=== PATIENT | male | born 1950 | race Caucasian/White ===

== ENCOUNTER 2019-01-04 15:20 | Inpatient (IN) | payer MEDICARE, BC ==
[2019-01-04] MEDS ORDERED: HEPARIN SODIUM,PORCINE 5,000 UNIT/ML 1 ML VIAL IV STA ×2 (15:26→15:27)
[2019-01-04] MEDS ORDERED: ASPIRIN 325 MG TAB PO STA (15:26)
[2019-01-04] MEDS ORDERED: MORPHINE SULFATE 2 MG/ML SYRINGE IVP STA (15:26)
[2019-01-04] MEDS ORDERED: ATORVASTATIN 40 MG TAB PO STA (15:26)
[2019-01-04] MEDS: ASPIRIN 81 MG PO STA ×2 (15:28→15:31)
[2019-01-04] MEDS ORDERED: ATORVASTATIN 80 MG TAB PO STA (15:29)
[2019-01-04] MEDS ORDERED: NALOXONE 0.4 MG/ML 1 ML VIAL IV PRN (15:31)
--- NOTE | 2019-01-04 15:37 | ED ---
General Adult HPI - General Stated complaint: Chest pain Time Seen by Provider: 01/04/19 15:21 Source: patient, RN notes reviewed, old records reviewed - History of Present Illness Initial comments: 68 -year-old male history of CAD previous stenting in 2001 presents for evaluation of chest pain lightheadedness and near syncope. Symptoms began 30 minutes prior to arrival. Patient describes substernal chest pain, diaphoresis and nausea. He has had previous NJ. 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 He is scheduled for an outpatient heart catheterization but has not had a heart catheterization since 2001. Patient has history of hypertension, hyperlipidemia. - Related Data Home Medications Medication Instructions Recorded Confirmed Aspirin [[place] Aspirin EC] 81 mg PO DAILY 01/04/19 01/04/19 Cholecalciferol (Vitamin D3) 2,000 unit PO DAILY 01/04/19 01/04/19 [Vitamin D3] Cyanocobalamin (Vitamin B-12) 1,000 mcg PO DAILY 01/04/19 01/04/19 [Vitamin B-12] Allergies Allergy/AdvReac Type Severity Reaction Status Date / Time wheat Allergy Severe Swelling Verified 01/04/19 15:27 Review of Systems ROS Statement: Those systems with pertinent positive or pertinent negative responses have been documented in the HPI. ROS Other: All systems not noted in ROS Statement are negative. General Exam General appearance: alert, in distress Head exam: Present: atraumatic, normocephalic Eye exam: Present: normal appearance, PERRL ENT exam: Present: normal exam Neck exam: Present: normal inspection. Absent: tenderness, meningismus Respiratory exam: Present: normal lung sounds bilaterally. Absent: respiratory distress, wheezes Cardiovascular Exam: Present: regular rate, normal rhythm GI/Abdominal exam: Present: soft. Absent: distended, tenderness Extremities exam: Present: normal inspection, normal capillary refill. Absent: pedal edema Neurological exam: Present: alert, oriented X3 Psychiatric exam: Present: normal affect, normal mood Skin exam: Present: diaphoretic, pallor EKG Findings - EKG Comments: EKG Findings:: EKG: Normal sinus rhythm ST segment elevation in II, III, and F aVF, T-wave inversion in aVL both 61, VT interval 148, QRS duration 98, QTC 428. ST segment elevation NJ. Medical Decision Making - Medical Decision Making 68-year-old male presenting with chest pain. EKG shows ST segment elevation in inferior leads. He is given aspirin, heparin, Lipitor the emergency department. label maker is activated, case discussed with Dr. Cruz. X-ray, laboratory studies all pending. Patient admitted with acute inferior NJ. Disposition Clinical Impression: STEMI (ST elevation myocardial infarction) Disposition: ADMITTED IP TO THIS [facility] Condition: Serious Is patient prescribed a controlled substance at d/c from ED?: No Referrals: None,Stated [Primary Care Provider] - 1-2 days Decision to Admit Reason: Admit from EC Decision Date: 01/04/19 Decision Time: 15:37
[2019-01-04] MEDS ORDERED: IV FLUID CONTINUATION 1,000 ML IV ONE ×2 (15:39)
[2019-01-04 15:41] LABS: Glucose,Whole Blood 120 mg/dL (75-99)
[2019-01-04 15:43] LABS: Basophils # (A) 0.1 k/uL (0-0.2); Basophils % (A) 1 %; Eosinophils # (A) 0.3 k/uL (0-0.7); Eosinophils % (A) 2 %; HGB 15.7 gm/dL (13.0-17.5); Lymphocytes # (A) 7.9 k/uL (1.0-4.8); Lymphocytes % (A) 52 %; MCH 30.7 pg (25.0-35.0); MCHC 32.7 g/dL (31.0-37.0); MCV 93.7 fL (80.0-100.0); Mean Platelet Volume 8.4; Monocytes # (A) 0.8 k/uL (0-1.0); Monocytes % (A) 5 %; Neutrophils # (A) 5.9 k/uL (1.3-7.7); Neutrophils % (A) 39 %; Platelet Count 259 k/uL (150-450); RBC 5.13 m/uL (4.30-5.90); WBC 15.3 k/uL (3.8-10.6)
[2019-01-04] MEDS ORDERED: VERAPAMIL 2.5 MG/ML 2 ML AMP ONE (15:43)
[2019-01-04] MEDS ORDERED: HEPARIN SODIUM 1,000 UN/ML (10ML VL) ONE (15:44)
[2019-01-04] MEDS ORDERED: LIDOCAINE 1% INJ 10MG/ML (20 ML MDV) ONE (15:44)
--- NOTE | 2019-01-04 15:47 | XR ---
EXAMINATION TYPE: XR chest 1V portable DATE OF EXAM: 01/04/2019 COMPARISON: NONE HISTORY: Myocardial infarction, chest pain TECHNIQUE: Single frontal view of the chest is obtained. FINDINGS: There is no focal air space opacity, pleural effusion, or pneumothorax seen. The cardiac silhouette size is within normal limits. There are overlying cardiac leads. Old left clavicular fract ure appears healed. The osseous structures are intact. IMPRESSION: No acute process.
[2019-01-04] MEDS ORDERED: MIDAZOLAM (PF) 2 MG/2 ML VIAL IV ONE (15:48)
[2019-01-04 15:52] LABS: Albumin 4.3 g/dL (3.5-5.0); Calcium 9.9 mg/dL (8.4-10.2); Total Bilirubin 0.5 mg/dL (0.2-1.3)
[2019-01-04] MEDS ORDERED: LIDOCAINE 1% INJ 10MG/ML (20 ML MDV) SQ ONE (16:00)
[2019-01-04 16:05] LABS: Prothrombin Time 10.5 sec (9.0-12.0)
[2019-01-04] MEDS ORDERED: BIVALIRUDIN BOLUS 250 MG/50 ML IV ONE (16:07)
[2019-01-04] MEDS ORDERED: CLOPIDOGREL 75 MG TAB ONE ×2 (16:07→16:09)
[2019-01-04] MEDS ORDERED: BIVALIRUDIN 250 MG in SODIUM CHLORIDE 0.9% 50 ML IV ONE (16:07)
[2019-01-04] MEDS ORDERED: CLOPIDOGREL 75 MG TAB PO ONE (16:07)
--- NOTE | 2019-01-04 16:09 | P.CRDCN ---
History of Present Illness Consult date: 01/04/19 Reason for Consult (text): Inferior STEMI Chief complaint: Chest pain History of present illness: This is a pleasant 68-year-old gentleman with history of anterior MA several years ago, at which time the patient underwent angioplasty and stenting of left anterior descending artery. History of hypertension, hyperlipidemia. He follows with a tax commissioner in the [facility]. He states recently he had an appointment with his tax commissioner, underwent stress testing and echocardiogram in his office. He had a follow-up appointment after his testing was performed, and was recommended by his tax commissioner to undergo cardiac catheterization Tuesday of next week. The patient was in the parking lot of 's office, waiting for his when he developed midsternal chest pressure and heaviness which she states that about 9 at that time. He thought he had some baby aspirin in the car, when he discovered that he did not, he drove himself to [place] and took a bottle of baby aspirin. Subsequently the patient was brought to the emergency room by his , EKG on arrival showed a normal sinus rhythm with ST elevation in the inferior leads. Patient's pain at the time of his arrival there was at about a 6-7. He was initiated on IV heparin, and the patient was given at 80 mg dose of Lipitor. His blood pressure on arrival 110/40 with a heart rate of 60, 97% on room air. Patient was advised to emergently undergo cardiac catheterization, the risks and the benefits were explained to the patient in detail and he was willing to proceed. Patient was taken directly to the cardiac catheterization lab. Medications and Allergies Home Medications Medication Instructions Recorded Confirmed Type Aspirin [[place] Aspirin EC] 81 mg PO DAILY 01/04/19 01/04/19 History Cholecalciferol (Vitamin D3) 2,000 unit PO DAILY 01/04/19 01/04/19 History [Vitamin D3] Cyanocobalamin (Vitamin B-12) 1,000 mcg PO DAILY 01/04/19 01/04/19 History [Vitamin B-12] Allergies Allergy/AdvReac Type Severity Reaction Status Date / Time wheat Allergy Severe Swelling Verified 01/04/19 15:27 Physical Exam Vitals: Vital Signs Pulse Resp BP Pulse Ox 01/04/19 15:31 63 19 111/42 97 Intake and Output 01/04/19 01/04/19 01/04/19 06:59 14:59 22:59 Other: Weight 87.09 kg PHYSICAL EXAMINATION: GENERAL: 68-year-old gentleman complaining of midsternal chest pressure and heaviness, rating at about a 6 HEENT: Head is atraumatic, normocephalic. Pupils equal, round. Sclera anicteric. Conjunctiva are clear. Mucous membranes of the mouth are moist. Neck is supple. There is no elevated jugular venous pressure. No carotid bruit is heard. HEART EXAMINATION: Heart S1, S2 normal. No murmur or gallop heard. CHEST EXAMINATION: Lungs are clear to auscultation and precussion. No chest wall tenderness is noted on palpation or with deep breathing. ABDOMEN: Soft, nontender. Bowel sounds are heard. No organomegaly noted. EXTREMITIES: 2+ peripheral pulses with no evidence of peripheral edema and no calf tenderness noted. NEUROLOGIC patient is awake, alert and oriented 3 . Results 01/04/19 15:27 01/04/19 15:27 Cardiac Enzymes 01/04/19 Range/Units 15:27 AST 24 (17-59) U/L CBC 01/04/19 Range/Units 15:27 WBC 15.3 H (3.8-10.6) k/uL RBC 5.13 (4.30-5.90) m/uL Hgb 15.7 (13.0-17.5) gm/dL Hct 48.0 (39.0-53.0) % Plt Count 259 (150-450) k/uL Comprehensive Metabolic Panel 01/04/19 Range/Units 15:27 Sodium 142 (137-145) mmol/L Potassium 4.0 (3.5-5.1) mmol/L Chloride 108 H (98-107) mmol/L Carbon Dioxide 23 (22-30) mmol/L BUN 22 H (9-20) mg/dL Creatinine 1.16 (0.66-1.25) mg/dL Glucose 124 H (74-99) mg/dL Calcium 9.9 (8.4-10.2) mg/dL AST 24 (17-59) U/L ALT 24 (21-72) U/L Alkaline Phosphatase 57 (38-126) U/L Total Protein 7.0 (6.3-8.2) g/dL Albumin 4.3 (3.5-5.0) g/dL Current Medications Generic Name Dose Route Start Last Admin Trade Name Freq PRN Reason Stop Dose Admin Naloxone HCl 0.2 mg 01/04/19 15:31 Narcan IV Q2M PRN Opioid Reversal Intake and Output 01/04/19 01/04/19 01/04/19 06:59 14:59 22:59 Other: Weight 87.09 kg Patient Weight 01/05/19 06:59 Weight 87.09 kg 01/04/19 15:27 01/04/19 15:27 EKG Interpretations (text) EKG on arrival showed a normal sinus rhythm with inferior ST elevation. Assessment and Plan Plan: Assessment and plan #[address] elevation myocardial infarction #2 history of prior myocardial infarction with LAD stenting several years ago #3 hypertension #4 hyperlipidemia Plan Patient had taken aspirin, he was initiated on IV heparin, given 80 mg of L ipitor, chest x-ray was performed and patient was advised to emergently undergo cardiac catheterization. The risks and the benefits were explained to the patient in detail and he was willing to proceed. He was taken directly to the cardiac catheterization lab where Dr. Pimentel was going to perform a cardiac catheterization. Further recommendations will be based on those findings and the patient's clinical course. DNP note has been reviewed, I agree with a documented findings and plan of care. Patient was seen and examined.
[2019-01-04] MEDS ORDERED: NITROGLYCERIN 1000MCG/10ML SYRINGE INTRACORON ONE ×2 (16:10→16:21)
[2019-01-04] MEDS ORDERED: fentaNYL (PF) 50 MCG/ML 2 ML AMP ONE (16:11)
[2019-01-04] MEDS ORDERED: IOPAMIDOL-370 125ML BTL INJ ONE (16:23)
[2019-01-04] MEDS ORDERED: IOPAMIDOL-370 100ML BTL INJ ONE (16:28)
[2019-01-04 16:35] LABS: Creatine Kinase MB 1.5 ng/mL (0.0-2.4)
[2019-01-04 16:39] LABS: Troponin I 0.013 ng/mL (0.000-0.034)
[2019-01-04] MEDS ORDERED: ATROPINE SULFATE 0.1 MG/ML 10ML SYRINGE IV PRN (16:40)
[2019-01-04] MEDS ORDERED: MAG HYDROX/AL HYDROX/SIMETH 30 ML CUP PO PRN (16:41)
[2019-01-04] MEDS ORDERED: NITROGLYCERIN SL TABS 0.4 MG TAB SUBLINGUAL PRN (16:42)
[2019-01-04] MEDS ORDERED: ZOLPIDEM 5 MG TAB PO PRN (16:43)
[2019-01-04] MEDS ORDERED: SODIUM CHLORIDE 0.9% 1,000 ML IV SCH (16:45)
[2019-01-04 16:52] LABS: Glucose,Whole Blood 125 mg/dL (75-99)
[2019-01-04] MEDS ORDERED: TEMAZEPAM 15 MG CAP PO PRN (17:26)
[2019-01-04] MEDS ORDERED: ALPRAZolam 0.25 MG TAB PO PRN (17:26)
[2019-01-04] MEDS ORDERED: HYDROmorphone 0.5 MG/0.5 ML SYRINGE IVP PRN (17:26)
[2019-01-04] MEDS ORDERED: ACETAMINOPHEN TAB 500 MG TAB PO PRN (17:26)
[2019-01-04 17:43] VITALS: BMI 28.1
[2019-01-04] MEDS: CLOPIDOGREL 75 MG TAB PO SCH (18:13)
[2019-01-04] MEDS ORDERED: ATORVASTATIN 80 MG TAB PO SCH (21:00)
--- NOTE | 2019-01-04 22:04 | HP ---
HISTORY AND PHYSICAL DATE OF SERVICE: 01/04/2019 CHIEF COMPLAINTS: Chest pain. HISTORY OF PRESENT ILLNESS: This 68-year-old gentleman with a past medical history of anterior wall myocardial infarction several years ago and angioplasty of the LAD, history of hypertension, hyperlipidemia, being followed by Dr. Sampson in the outpatient setting. The patient apparently was waiting near the doctor's office in the parking lot. Patient developed chest pain. The patient apparently took some aspirins, because of lack of relief, the patient came to [facility]. The patient underwent cardiac assistance and stenting. The patient admitted for further evaluation and treatment. The details are not available at this time. The patient is being admitted to ICU at this time. There is no history of fever, rigors. No history of headache, loss consciousness, seizures at this time. PAST MEDICAL HISTORY: History of hypertension, hyperlipidemia, history of myocardial infarction. MEDICATIONS: Prior to admission include vitamin B12, vitamin D3, and aspirin 81 daily. ALLERGIES: WHEAT. FAMILY HISTORY: No history of heart disease or strokes in the family. SOCIAL HISTORY: No history of smoking. No history of alcohol intake. REVIEW OF SYSTEMS: ENT: No diminished hearing. No diminished vision. CARDIOVASCULAR: As mentioned earlier. RESPIRATORY: As mentioned earlier. GI: No nausea or vomiting. : No dysuria. NERVOUS SYSTEM: No numbness or weakness. ALLERGY/IMMUNOLOGY: No asthma or hayfever. MUSCULOSKELETAL: As mentioned earlier. HEMATOLOGY/ONCOLOGY: No history of anemia. ENDOCRINE: No history of diabetes or hypothyroidism. CONSTITUTIONAL: As mentioned earlier. Dermatology: Negative. Rheumatology: Negative. Psychiatry: As mentioned earlier. PHYSICAL EXAMINATION: GENERAL: Alert and oriented times three. VITAL SIGNS: Pulse 63, blood pressure 114/42, respiration 18, temp is normal. Pulse ox 97% on room air. HEENT conjunctivae normal. Oral mucosa moist. NECK is no jugular venous distention. No carotid bruit. No lymph node enlargement. CARDIOVASCULAR SYSTEMS: S1, S2 muffled. RESPIRATIONS: Breath sounds diminished in the bases. No rhonchi. No crackles. ABDOMEN: Soft, nontender. No mass palpable. LEGS: No edema. No swelling. NERVOUS SYSTEM: Higher functions as mentioned earlier. Moves all four extremities. No focal deficits. LYMPHATICS: No lymph nodes palpable in the neck, axillae or groin. SKIN: No ulcer, rash or bleeding. JOINTS: No active deforming arthropathy. LABS: WBC 15.3, hemoglobin 16.2, sodium 140, potassium 4. ASSESSMENT: 1. Acute ST segment elevation inferior wall myocardial infarction as well as cardiac catheterization and stenting. 2. Increased WBC possibly reactive. 3. Increased random blood sugar. 4. Hypertension. 5. Hyperlipidemia. 6. History of coronary artery disease myocardial infarction. RECOMMENDATIONS AND DISCUSSION: In this 68-year-old gentleman who presented with multiple medical issues, we will monitor the patient closely, continue the current medications, symptomatic treatment, dual antiplatelet treatment, Lipitor. Otherwise, we will monitor the patient closely and with Cardiology. Prognosis guarded. Copy of dictation forwarded to Dr. Sampson who is the primary physician. Repeat labs also will be ordered. PEREZ / LATONIAN: [id number] / MTDD
[2019-01-05 05:38] LABS: Basophils # (A) 0.1 k/uL (0-0.2); Basophils % (A) 0 %; Eosinophils # (A) 0.1 k/uL (0-0.7); Eosinophils % (A) 1 %; HCT 44.8 % (39.0-53.0); HGB 14.5 gm/dL (13.0-17.5); Lymphocytes # (A) 3.1 k/uL (1.0-4.8); Lymphocytes % (A) 22 %; MCH 30.4 pg (25.0-35.0); MCHC 32.3 g/dL (31.0-37.0); MCV 94.2 fL (80.0-100.0); Mean Platelet Volume 7.8; Monocytes % (A) 7 %; Neutrophils # (A) 9.6 k/uL (1.3-7.7); Neutrophils % (A) 69 %; Platelet Count 203 k/uL (150-450); RBC 4.76 m/uL (4.30-5.90); RDW 13.2 % (11.5-15.5)
[2019-01-05 05:51] LABS: Calcium 9.3 mg/dL (8.4-10.2); Potassium 4.6 mmol/L (3.5-5.1)
--- NOTE | 2019-01-05 07:51 | LTR ---
DATE OF SERVICE: 01/04/2019 RE: Irvin Maksim Dear Dr. Sampson; Mr. Maksim Bryan presented to [facility] with chest discomfort and was diagnosed with acute anterior inferior ST-elevation myocardial infarction. He was found to have subtotally occluded right coronary artery which was opened and stented with good angiographic results and without any complication. Thank you for allowing me to participate in his care and please do not hesitate to call if you have any question or concern. Sincerely, MD PEREZ Rubio / LATONIAN: [id number] /
--- NOTE | 2019-01-05 07:51 | CC ---
CARDIAC CATHETERIZATION REPORT DATE OF SERVICE: 01/04/2019 PERFORMING PHYSICIAN: Bart Cruz MD, Career Counselor. PROCEDURE PERFORMED: 1. Selective right and left coronary angiogram. 2. Left heart catheterization. 3. Successful stenting of the mid right coronary artery using 3.5 x 23 mm Xience drug- eluting stent with an excellent angiographic results and reduction of stenosis from 100% to 0%. 4. Successful stenting of the distal right coronary artery using 3.0 x 12 mm Xience drug-eluting stent with an excellent angiographic results and reduction of stenosis from 70% to 0%. INDICATION: This is a pleasant 68-year-old gentleman who sees a technology risk intern out of the town, , with known history of coronary artery disease and prior stenting of the left anterior descending artery, who presented to the emergency room with chest discomfort, and was diagnosed with acute inferior ST-elevation myocardial infarction. Because of that, an emergent heart catheterization was advised. APPROACH: Right common femoral artery. COMPLICATION: None. LEVEL OF SEDATION: Moderate with sedation length of 38 minutes. PROCEDURE DESCRIPTION: After obtaining an informed consent, the patient was brought to the cardiac labor and employment paralegal. The right common femoral artery was cannulated using micropuncture technique and a micropuncture wire passed easily, then I placed a 6-Colombian sheath in the right common femoral artery. After that, I did selective right and left coronary angiogram using JR4 and JL4 catheters. Left heart catheterization was performed using the JR4 catheter which flipped into the LV, then I did pullback across the aortic valve. After that, I did intervene on the right coronary artery. Please see a separate paragraph for that. SELECTIVE CORONARY ANGIOGRAM: 1. The right coronary artery is a large caliber vessel. It is a dominant vessel. The RCA in the midportion is subtotally occluded. 2. The left main is angiographically normal, it bifurcates into the circumflex and left anterior descending artery. 3. The left circumflex is a large caliber vessel. It is a codominant vessel. The left circumflex appeared to be angiographically normal, in the midportion, gives rise into a large OM branch and distally bifurcates into PDA and PLV branches, both appeared to be angiographically normal. 4. The LAD, the proximal LAD is stented with mild in-stent restenosis. The LAD in the proximal portion gives rise into the first and second diagonal branches, both appear to be have mild disease only. The LAD in the midportion and distal portion appeared to be diffusely diseased up to about 50%. HEMODYNAMICS: The left ventricular end-diastolic pressure was about 12 mmHg without significant gradient across the aortic valve. PCI OF THE RCA: Anticoagulation was initiated using Angiomax but subsequently I took a JR4 guide and the RCA was engaged. A whisper wire was used to cross the acute total occlusion in the midportion. After that, I did balloon angioplasty using 2.5 x 12 mm balloon before I deployed a 3.5 x 23 mm Xience drug-eluting stent where the stent was positioned under fluoroscopy guidance and deployed under 14 atmospheres for 20 seconds. The following angiogram showed that the stented segment looks good, but there is a lesion in the distal RCA appears to be in the range of 70%. I decided to cover that with a stent, so I placed 3.0 x 12 mm, another Xience drug-eluting stent where the stent again was positioned under fluoroscopy guidance and deployed under its nominal pressure. The following angiogram showed good angiographic results and the procedure was completed without any complication. CONCLUSION: 1. Acute total occlusion of the mid right coronary artery. 2. Successful stenting of the mid right coronary artery using 3.5 x 23 mm Xience drug- eluting stent as well as the distal right coronary artery using 3.0 x 12 mm Xience drug-eluting stent with an excellent angiographic results. 3. Patent stent in the proximal left anterior descending artery. The LAD in the mid and distal portion is diffusely diseased. POSTPROCEDURE MANAGEMENT: 1. Maximize medical treatment. 2. Dual anti-platelet therapy. 3. Risk factors modifications. 4. Follow up with the patient. MMODL / IJN: [id number] /
--- NOTE | 2019-01-05 08:08 | P.PN ---
Subjective Progress Note Date: 01/05/19 Principal diagnosis: Inferior ST elevation MD This is a pleasant 68-year-old gentleman with a past medical history significant for coronary artery disease and prior stenting of the LAD who presented to the hospital with chest discomfort and was diagnosed with acute inferior ST patient myocardial infarction. He underwent an emergent heart catheterization and was found to have subtotally occluded mid RCA which was stented and severe disease involving the distal RCA which was stented as well. On follow-up with him today, 01/15/2019, he seems to be doing good from a cardiac vascular standpoint overview. He denies any chest pain or chest discomfort. He has been maintaining normal sinus mechanism. The right groin which was the access site is soft and nontender and without any bruises. He continues to be on dual antiplatelet therapy along with a statin as well as meto prolol. Objective - Vital Signs Vital signs: Vital Signs Temp 98.0 F 01/05/19 04:00 Pulse 83 01/05/19 07:00 Resp 17 01/05/19 07:00 BP 132/81 01/05/19 07:00 Pulse Ox 96 01/05/19 07:00 Intake & Output 01/04/19 01/05/19 01/05/19 18:59 06:59 18:59 Intake Total 560 495 Output Total 300 770 200 Balance 260 -275 -200 Weight 87.09 kg Intake: IV 560 375 Sodium Chloride 0.9% 1, 225 375 000 ml @ 75 mls/hr IV . [id number] TAWANNA Rx#:[id number] Oral 120 Output: Urine 300 770 200 Other: Voiding Method Urinal Urinal # Voids 0 - Constitutional General appearance: Present: no acute distress - Respiratory Respiratory: bilateral: CTA - Cardiovascular Rhythm: regular Heart sounds: normal: S1, S2 - Labs CBC & Chem 7: 01/05/19 04:47 01/05/19 04:47 Labs: Abnormal Lab Results - Last 24 Hours (Table) 01/04/19 01/04/19 01/04/19 Range/Units 15:27 15:27 15:27 WBC 15.3 H (3.8-10.6) k/uL Neutrophils # (1.3-7.7) k/uL Lymphocytes # 7.9 H (1.0-4.8) k/uL Chloride 108 H (98-107) mmol/L BUN 22 H (9-20) mg/dL Glucose 124 H (74-99) mg/dL POC Glucose (mg/dL) 120 H (75-99) mg/dL 01/04/19 01/05/19 Range/Units 16:50 04:47 WBC 14.0 H (3.8-10.6) k/uL Neutrophils # 9.6 H (1.3-7.7) k/uL Lymphocytes # (1.0-4.8) k/uL Chloride (98-107) mmol/L BUN (9-20) mg/dL Glucose (74-99) mg/dL POC Glucose (mg/dL) 125 H (75-99) mg/dL Assessment and Plan Assessment: Assessment #[address] patient myocardial infarction #2 status post PCI of the mid and distal RCA #3 hypertension #4 dyslipidemia Plan #1 continue the current medical regimen including dual antiplatelet therapy #2 follow-up on the echocardiogram to assess EF #3 the patient can be transferred to [facility]
[2019-01-05] MEDS: PANTOPRAZOLE 40 MG TABLET PO SCH (08:26)
[2019-01-05] MEDS: PRAVASTATIN SODIUM 20 MG TAB PO SCH (08:26)
[2019-01-05] MEDS: ASPIRIN 325 MG TAB PO SCH (08:26)
[2019-01-05] MEDS: CLOPIDOGREL 75 MG TAB PO SCH (08:26)
--- NOTE | 2019-01-05 11:06 | ECHOF ---
Referral Reason:stemi MEASUREMENTS -------- HEIGHT: 177.8 cm WEIGHT: 87.1 kg BP: 123/8 RVIDd: 3.1 cm (< 3.3) IVSd: 1.5 cm (0.6 - 1.1) LVIDd: 5.1 cm (3.9 - 5.3) LVPWd: 1.5 cm (0.6 - 1.1) IVSs: 2.2 cm LVIDs: 3.4 cm LVPWs: 1.8 cm LA Diam: 3.4 cm (2.7 - 3.8) LAESV Index (A-L): 21.86 ml/m Ao Diam: 3.6 cm (2.0 - 3.7) AV Cusp: 2.8 cm (1.5 - 2.6) MV EXCURSION: 13.189 mm (> 18.000) MV EF SLOPE: 131 mm/s (70 - 150) EPSS: 0.8 cm MV E Maximilian: 0.60 m/s MV DecT: 227 ms MV A Maximilian: 1.04 m/s MV E/A Ratio: 0.58 FINDINGS -------- Sinus rhythm. This was a technically adequate study. The left ventricular size is normal. There is moderate concentric left ventricular hypertrophy. O verall left ventricular systolic function is moderately impaired with, an EF between 35 - 40 %. Mid anteroseptal LV wall motion is akinetic. Apical anterior LV wall motion is akinetic. Apical la teral LV wall motion is hypokinetic. Apical inferior LV wall motion is akinetic. Apical septum LV wall motion is akinetic. The right ventricle is normal in size. Normal LA size by volume 22+/-6 ml/m2. The right atrium is normal in size. Lipomatous hypertrophy of atrial septum. There is mild aortic valve sclerosis. The mitral valve leaflets are mildly thickened. The tricuspid valve appears structurally normal. Trace/mild (physiologic) pulmonic regurgitation. Thrombus in LV apex by intraventricular septum The aortic root size is normal. Normal inferior vena cava with normal inspiratory collapse consistent with estimated right atrial pre ssure of 5 mmHg. There is no pericardial effusion. CONCLUSIONS -------- 1. Sinus rhythm. 2. This was a technically adequate study. 3. The left ventricular size is normal. 4. There is moderate concentric left ventricular hypertrophy. 5. Overall left ventricular systolic function is moderately impaired with, an EF between 35 - 40 %. 6. Apical anterior LV wall motion is akinetic. 7. Apical lateral LV wall motion is hypokinetic. 8. Apical inferior LV wall motion is akinetic. 9. Apical septum LV wall motion is akinetic. 10. The right ventricle is normal in size. 11. Normal LA size by volume 22+/-6 ml/m2. 12. The right atrium is normal in size. 13. Lipomatous hypertrophy of atrial septum. 14. There is mild aortic valve sclerosis. 15. The mitral valve leaflets are mildly thickened. 16. The tricuspid valve appears structurally normal. 17. Trace/mild (physiologic) pulmonic regurgitation. 18. Thrombus in LV apex by intraventricular septum 19. The aortic root size is normal. 20. Normal inferior vena cava with normal inspiratory collapse consistent with estimated right atrial pressure of 5 mmHg. 21. There is no pericardial effusion. DIRECTOR GENERAL: Nancy Mejia RDCS
--- NOTE | 2019-01-05 16:54 | P.PN ---
Subjective Progress Note Date: 01/05/19 Principal diagnosis: Acute ST elevation [place]; status post cardiac catheterization with stent to mid RCA 68-year-old gentleman with a past medical history significant for coronary art norma disease and prior stenting of the LAD who presented to the hospital with chest discomfort and was diagnosed with acute inferior ST patient myocardial infarction. He underwent an emergent heart catheterization and was found to have subtotally occluded mid RCA which was stented and severe disease involving the distal RCA which was stented as well. 01/05/2019 On follow-up, patient seems to be doing good; He denies any chest pain or chest discomfort. He has been maintaining normal sinus mechanism. The right groin which was the access site is soft and nontender and without any bruises. He continues to be on dual antiplatelet therapy along with a statin as well as metoprolol. Cardiothoracic surgery recommending possible transfer to selective care unit Objective - Vital Signs Vital signs: Vital Signs Temp 98.1 F 01/05/19 08:00 Pulse 85 01/05/19 08:00 Resp 20 01/05/19 08:00 BP 134/84 01/05/19 08:00 Pulse Ox 95 01/05/19 08:00 Intake & Output 01/04/19 01/05/19 01/05/19 18:59 06:59 18:59 Intake Total 560 495 Output Total 300 770 200 Balance 260 -275 -200 Weight 87.09 kg Intake: IV 560 375 Sodium Chloride 0.9% 1, 225 375 000 ml @ 75 mls/hr IV . [id number] TAWANNA Rx#:[id number] Oral 120 Output: Urine 300 770 200 Other: Voiding Method Urinal Urinal Toilet Urinal # Voids 0 # Bowel Movements 1 - Exam - Constitutional General appearance: Present: average body habitus, cooperative, no acute distress - EENT Eyes: Present: anicteric sclerae, EOMI, PERRLA, normal appearance ENT: Present: hearing grossly normal, normal oropharynx Ears: bilateral: normal - Neck Neck: Present: normal ROM. Absent: lymphadenopathy, rigidity, thyromegaly Carotids: negative: bruit present Thyroid: bilateral: normal size, negative: enlarged, nodule - Respiratory Respiratory: bilateral: CTA, negative: rales, rhonchi, wheezing - Cardiovascular Rhythm: regular Heart sounds: normal: S1, S2 Abnormal Heart Sounds: Absent: systolic murmur, diastolic murmur - Gastrointestinal General gastrointestinal: Present: normal bowel sounds, soft. Absent: distended, organomegaly, tenderness - Genitourinary Genitourinary Comment(s): deferred - Integumentary Integumentary: Present: normal turgor. Absent: jaundiced, rash, ulcer - Neurologic Neurologic: Present: CNII-XII intact. Absent: focal deficits - Musculoskeletal Musculoskeletal: Present: gait normal, strength equal bilaterally - Psychiatric Psychiatric: Present: A&O x's 3, appropriate affect, intact judgment & insight - Labs CBC & Chem 7: 01/05/19 04:47 01/05/19 04:47 Labs: Abnormal Lab Results - Last 24 Hours (Table) 01/04/19 01/04/19 01/04/19 Range/Units 15:27 15:27 15:27 WBC 15.3 H (3.8-10.6) k/uL Neutrophils # (1.3-7.7) k/uL Lymphocytes # 7.9 H (1.0-4.8) k/uL Chloride 108 H (98-107) mmol/L BUN 22 H (9-20) mg/dL Glucose 124 H (74-99) mg/dL POC Glucose (mg/dL) 120 H (75-99) mg/dL 01/04/19 01/05/19 Range/Units 16:50 04:47 WBC 14.0 H (3.8-10.6) k/uL Neutrophils # 9.6 H (1.3-7.7) k/uL Lymphocytes # (1.0-4.8) k/uL Chloride (98-107) mmol/L BUN (9-20) mg/dL Glucose (74-99) mg/dL POC Glucose (mg/dL) 125 H (75-99) mg/dL Assessment and Plan Assessment: 1. Acute ST elevation [place] - Patient is status post cardiac catheterization with stent to mid RCA - Patient remains on antiplatelet therapy with aspirin and Plavix 2. Hypertension; stable without any antihypertensive medications 3. Hyperlipidemia; remains on pravastatin 20 mg daily 4. DVT prophylaxis; SCDs CODE STATUS; full code Time with Patient: Greater than 30
[2019-01-06 05:17] LABS: Basophils # (A) 0.1 k/uL (0-0.2); Basophils % (A) 1 %; Eosinophils # (A) 0.3 k/uL (0-0.7); Eosinophils % (A) 3 %; HCT 46.5 % (39.0-53.0); HGB 14.9 gm/dL (13.0-17.5); Lymphocytes # (A) 3.9 k/uL (1.0-4.8); Lymphocytes % (A) 33 %; MCHC 32.1 g/dL (31.0-37.0); MCV 93.5 fL (80.0-100.0); Mean Platelet Volume 8.4; Monocytes # (A) 0.8 k/uL (0-1.0); Monocytes % (A) 7 %; Neutrophils # (A) 6.5 k/uL (1.3-7.7); Neutrophils % (A) 55 %; Platelet Count 227 k/uL (150-450); RBC 4.98 m/uL (4.30-5.90); WBC 11.8 k/uL (3.8-10.6)
[2019-01-06 05:31] LABS: Calcium 9.2 mg/dL (8.4-10.2); Potassium 4.5 mmol/L (3.5-5.1)
--- NOTE | 2019-01-06 07:09 | P.PN ---
Subjective Progress Note Date: 01/06/19 Principal diagnosis: Inferior ST elevation [place] This is a pleasant 68-year-old gentleman with a past medical history significant for coronary artery disease and prior stenting of the LAD who presented to the hospital with chest discomfort and was diagnosed with acute inferior ST patient myocardial infarction. He underwent an emergent heart catheterization and was found to have subtotally occluded mid RCA which was stented and severe disease involving the distal RCA which was stented as well. On follow-up with him today, 01/06/2019, he seems to be doing good from a cardiac vascular standpoint overview. He denies any chest pain or chest discomfort. He has been maintaining normal sinus mechanism. The right groin which was the access site is soft and nontender and without any bruises. He continues to be on dual antiplatelet therapy along with a statin as well as metoprolol. The echocardiogram showed severe cardiomyopathy was EF around 35%. Objective - Vital Signs Vital signs: Vital Signs Temp 98.3 F 01/06/19 00:00 Pulse 84 01/06/19 00:00 Resp 12 01/06/19 00:00 BP 119/77 01/06/19 00:00 Pulse Ox 96 01/06/19 00:00 Intake & Output 01/05/19 01/06/19 01/06/19 18:59 06:59 18:59 Intake Total 240 480 Output Total 300 Balance -60 480 Intake: Oral 240 480 Output: Urine 300 Other: Voiding Method Toilet Toilet Urinal Urinal # Voids 1 # Bowel Movements 1 - Constitutional General appearance: Present: no acute distress - Respiratory Respiratory: bilateral: CTA - Cardiovascular Rhythm: regular Heart sounds: normal: S1, S2 - Labs CBC & Chem 7: 01/06/19 04:41 01/06/19 04:41 Labs: Abnormal Lab Results - Last 24 Hours (Table) 01/06/19 Range/Units 04:41 WBC 11.8 H (3.8-10.6) k/uL Assessment and Plan Assessment: Assessment #[address] patient myocardial infarction #2 status post PCI of the mid and distal RCA #3 hypertension #4 dyslipidemia Plan #1 continue the current medical regimen including dual antiplatelet therapy #2 start metoprolol, lisinopril, and Aldactone, with small doses #4 monitor the patient for additional 24 hours and possible discharge tomorrow #5 follow-up with the patient
[2019-01-06] MEDS: SPIRONOLACTONE 25 MG TAB PO SCH (09:41)
[2019-01-06] MEDS: PANTOPRAZOLE 40 MG TABLET PO SCH (09:41)
[2019-01-06] MEDS: METOPROLOL TARTRATE 12.5 MG TAB PO SCH ×2 (09:41→21:12)
[2019-01-06] MEDS: ASPIRIN 325 MG TAB PO SCH (09:41)
[2019-01-06] MEDS: CLOPIDOGREL 75 MG TAB PO SCH (09:41)
[2019-01-06] MEDS: PRAVASTATIN SODIUM 20 MG TAB PO SCH (09:41)
[2019-01-06] MEDS: LISINOPRIL 2.5 MG TAB PO SCH (09:41)
--- NOTE | 2019-01-06 16:13 | P.PN ---
Subjective Progress Note Date: 01/06/19 Principal diagnosis: Acute ST elevation [place]; status post cardiac catheterization with stent to mid RCA 68-year-old gentleman with a past medical history significant for coronary art norma disease and prior stenting of the LAD who presented to the hospital with chest discomfort and was diagnosed with acute inferior ST patient myocardial infarction. He underwent an emergent heart catheterization and was found to have subtotally occluded mid RCA which was stented and severe disease involving the distal RCA which was stented as well. 01/05/2019 On follow-up, patient seems to be doing good; He denies any chest pain or chest discomfort. He has been maintaining normal sinus mechanism. The right groin which was the access site is soft and nontender and without any bruises. He continues to be on dual antiplatelet therapy along with a statin as well as metoprolol. Cardiothoracic surgery recommending possible transfer to selective care unit 01/06/2019, he seems to be doing good from a cardiac vascular standpoint overview. He denies any chest pain or chest discomfort. He has been maintaining normal sinus mechanism. The right groin which was the access site is soft and nontender and without any bruises. He continues to be on dual antiplatelet therapy along with a statin as well as metoprolol. The echocardiogram showed severe cardiomyopathy was EF around 35%. Objective - Vital Signs Vital signs: Vital Signs Temp 98.1 F 01/06/19 04:01 Pulse 69 01/06/19 06:00 Resp 12 01/06/19 06:00 BP 108/78 01/06/19 04:01 Pulse Ox 95 01/06/19 04:01 Intake & Output 01/05/19 01/06/19 01/06/19 18:59 06:59 18:59 Intake Total 240 480 Output Total 300 Balance -60 480 Intake: Oral 240 480 Output: Urine 300 Other: Voiding Method Toilet Toilet Urinal Urinal # Voids 1 # Bowel Movements 1 - Exam - Constitutional General appearance: Present: average body habitus, cooperative, no acute distress - EENT Eyes: Present: anicteric sclerae, EOMI, PERRLA, normal appearance ENT: Present: hearing grossly normal, normal oropharynx Ears: bilateral: normal - Neck Neck: Present: normal ROM. Absent: lymphadenopathy, rigidity, thyromegaly Carotids: negative: bruit present Thyroid: bilateral: normal size, negative: enlarged, nodule - Respiratory Respiratory: bilateral: CTA, negative: rales, rhonchi, wheezing - Cardiovascular Rhythm: regular Heart sounds: normal: S1, S2 Abnormal Heart Sounds: Absent: systolic murmur, diastolic murmur - Gastrointestinal General gastrointestinal: Present: normal bowel sounds, soft. Absent: distended, organomegaly, tenderness - Genitourinary Genitourinary Comment(s): deferred - Integumentary Integumentary: Present: normal turgor. Absent: jaundiced, rash, ulcer - Neurologic Neurologic: Present: CNII-XII intact. Absent: focal deficits - Musculoskeletal Musculoskeletal: Present: gait normal, strength equal bilaterally - Psychiatric Psychiatric: Present: A&O x's 3, appropriate affect, intact judgment & insight - Labs CBC & Chem 7: 01/06/19 04:41 01/06/19 04:41 Labs: Abnormal Lab Results - Last 24 Hours (Table) 01/06/19 Range/Units 04:41 WBC 11.8 H (3.8-10.6) k/uL Assessment and Plan Assessment: 1. Acute ST elevation [place] - Patient is status post cardiac catheterization with stent to mid RCA - Patient remains on antiplatelet therapy with aspirin and Plavix 2. Hypertension; stable without any antihypertensive medications 3. Hyperlipidemia; remains on pravastatin 20 mg daily 4. DVT prophylaxis; SCDs CODE STATUS; full code Time with Patient: Greater than 30
[2019-01-07] MEDS: PANTOPRAZOLE 40 MG TABLET PO SCH (05:55)
[2019-01-07 06:40] LABS: Basophils # (A) 0.1 k/uL (0-0.2); Basophils % (A) 1 %; Eosinophils # (A) 0.5 k/uL (0-0.7); Eosinophils % (A) 4 %; HCT 45.4 % (39.0-53.0); HGB 14.8 gm/dL (13.0-17.5); Lymphocytes # (A) 3.7 k/uL (1.0-4.8); Lymphocytes % (A) 33 %; MCH 30.4 pg (25.0-35.0); MCHC 32.7 g/dL (31.0-37.0); MCV 92.9 fL (80.0-100.0); Mean Platelet Volume 8.4; Monocytes # (A) 0.9 k/uL (0-1.0); Monocytes % (A) 8 %; Neutrophils # (A) 5.8 k/uL (1.3-7.7); Neutrophils % (A) 52 %; Platelet Count 210 k/uL (150-450); RBC 4.88 m/uL (4.30-5.90); RDW 13.6 % (11.5-15.5); WBC 11.1 k/uL (3.8-10.6)
[2019-01-07 06:46] LABS: Calcium 9.2 mg/dL (8.4-10.2); Potassium 4.5 mmol/L (3.5-5.1)
[2019-01-07] MEDS: SPIRONOLACTONE 25 MG TAB PO SCH (08:42)
[2019-01-07] MEDS: ASPIRIN 325 MG TAB PO SCH (08:42)
[2019-01-07] MEDS: PRAVASTATIN SODIUM 20 MG TAB PO SCH (08:43)
[2019-01-07] MEDS: METOPROLOL TARTRATE 12.5 MG TAB PO SCH (08:43)
[2019-01-07] MEDS: LISINOPRIL 2.5 MG TAB PO SCH (08:44)
[2019-01-07] MEDS: CLOPIDOGREL 75 MG TAB PO SCH (08:44)
--- NOTE | 2019-01-07 10:11 | P.PN ---
Subjective Progress Note Date: 01/07/19 Principal diagnosis: Inferior ST elevation [place] This is a pleasant 68-year-old gentleman with a past medical history significant for coronary artery disease and prior stenting of the LAD who presented to the hospital with chest discomfort and was diagnosed with acute inferior ST patient myocardial infarction. He underwent an emergent heart catheterization and was found to have subtotally occluded mid RCA which was stented and severe disease involving the distal RCA which was stented as well. On follow-up with him today, January 072018, he is asymptomatic from the cardiovascular standpoint of view. He has been up and over. No arrhythmia was noted overnight. From the cardiac vascular standpoint of view, the patient can be discharged home. Objective - Vital Signs Vital signs: Vital Signs Temp 98 F 01/07/19 00:00 Pulse 65 01/07/19 04:00 Resp 16 01/07/19 04:00 BP 95/60 01/07/19 04:00 Pulse Ox 96 01/07/19 04:00 Intake & Output 01/06/19 01/07/19 01/07/19 18:59 06:59 18:59 Intake Total 840 240 Output Total 1500 Balance -660 240 Weight 86.1 kg Intake: Oral 840 240 Output: Urine 1500 Other: Voiding Method Toilet Toilet Urinal Urinal # Voids 1 1 # Bowel Movements 1 - Constitutional General appearance: Present: no acute distress - Respiratory Respiratory: bilateral: CTA - Cardiovascular Rhythm: regular Heart sounds: normal: S1, S2 - Labs CBC & Chem 7: 01/07/19 05:30 01/07/19 05:30 Labs: Abnormal Lab Results - Last 24 Hours (Table) 01/07/19 01/07/19 Range/Units 05:30 05:30 WBC 11.1 H (3.8-10.6) k/uL BUN 23 H (9-20) mg/dL Assessment and Plan Assessment: Assessment #[address] patient myocardial infarction #2 status post PCI of the mid and distal RCA #3 hypertension #4 dyslipidemia Plan #1 continue the current medical regimen #2 the patient can be discharged home
[2019-01-07 10:26] VITALS: TEMP 97.4
[2019-01-07 14:13] VITALS: BP 112/78; PULSE 78; RESP 16
--- NOTE | 2019-01-07 15:10 | P.DS ---
Providers Date of admission: 01/04/19 15:31 Expected date of discharge: 01/07/19 Attending physician: Willie Suárez Consults: 01/04/19 15:31 Consult Physician Stat Consulting Provider: Bart Cruz Reason/Comments: STEMI Do you want consulting provider notified?: Already Contacted Primary care physician: [facility] Course: Acute ST elevation [place]; status post cardiac catheterization with stent to mid RCA 68-year-old gentleman with a past medical history significant for coronary artery disease and prior stenting of the LAD who presented to the hospital with chest discomfort and was diagnosed with acute inferior ST patient myocardial infarction. He underwent an emergent heart catheterization and was found to have subtotally occluded mid RCA which was stented and severe disease involving the distal RCA which was stented as well. 01/05/2019 On follow-up, patient seems to be doing good; He denies any chest pain or chest discomfort. He has been maintaining normal sinus mechanism. The right groin which was the access site is soft and nontender and without any bruises. He continues to be on dual antiplatelet therapy along with a statin as well as metoprolol. Cardiothoracic surgery recommending possible transfer to selective care unit 01/06/2019, he seems to be doing good from a cardiac vascular standpoint overview. He denies any chest pain or chest discomfort. He has been maintaining normal sinus mechanism. The right groin which was the access site is soft and nontender and without any bruises. He continues to be on dual antiplatelet therapy along with a statin as well as metoprolol. The echocardiogram showed severe cardiomyopathy was EF around 35%. 01/07/2019; patient remains clinically stable; medication adjustment is done by cardiology service and patient has been cleared for discharge on current medications; detailed discussion about discharge medications at the patient and all questions were answered to his satisfaction Patient Condition at Discharge: Serious Plan - Discharge Summary Discharge Rx Participant: No New Discharge Prescriptions: New Spironolactone [Aldactone] 25 mg PO DAILY #30 tab Aspirin 325 mg PO DAILY #30 tab Metoprolol Tartrate [Lopressor] 12.5 mg PO BID #60 tab Nitroglycerin Sl Tabs [Nitrostat] 0.4 mg SUBLINGUAL Q5M PRN #20 tab PRN Reason: CHEST PAIN Clopidogrel [Plavix] 75 mg PO DAILY #30 tab Pravastatin Sodium [Pravachol] 20 mg PO DAILY #30 tab Lisinopril [Zestril] 2.5 mg PO DAILY #30 tab Continue Cyanocobalamin (Vitamin B-12) [Vitamin B-12] 1,000 mcg PO DAILY Cholecalciferol (Vitamin D3) [Vitamin D3] 2,000 unit PO DAILY Discontinued Aspirin [[place] Aspirin EC] 81 mg PO DAILY Discharge Medication List Cholecalciferol (Vitamin D3) [Vitamin D3] 2,000 unit PO DAILY 01/04/19 [History] Cyanocobalamin (Vitamin B-12) [Vitamin B-12] 1,000 mcg PO DAILY 01/04/19 [History] Aspirin 325 mg PO DAILY #30 tab 01/07/19 [Rx] Clopidogrel [Plavix] 75 mg PO DAILY #30 tab 01/07/19 [Rx] Lisinopril [Zestril] 2.5 mg PO DAILY #30 tab 01/07/19 [Rx] Metoprolol Tartrate [Lopressor] 12.5 mg PO BID #60 tab 01/07/19 [Rx] Nitroglycerin Sl Tabs [Nitrostat] 0.4 mg SUBLINGUAL Q5M PRN #20 tab 01/07/19 [Rx] Pravastatin Sodium [Pravachol] 20 mg PO DAILY #30 tab 01/07/19 [Rx] Spironolactone [Aldactone] 25 mg PO DAILY #30 tab 01/07/19 [Rx] Follow up Appointment(s)/Referral(s): Bart Cruz MD [STAFF PHYSICIAN] - 1 Week (Please call office to schedule follow up appointment for [address] Cruz. ) None,Stated [REFERRING] - 1-2 days (Please call office during business hours to schedule follow up with Dr Sampson. ) Patient Instructions/Handouts: *Surgery [facility] - After Heart Catheterization - Half Section Ironer Instructions, Heart Attack (DC), Heart Catheterization (DC) Discharge Disposition: HOME SELF-CARE
== END 2019-01-07 14:54 | disposition home or self-care (01) | DRG 247 ==
LOC: SUPCPDRO 15:20 → EC 15:20 → 2SICU 15:31 → MERGE 15:31 → 2SICU 17:11 → 3SCARD 01-06 14:14
PROVIDERS: ADMIT Internal Medicine; ATTEND Internal Medicine
PROC: B2111ZZ Fluoroscopy of Multiple Coronary Arteries using Low Osmolar Contrast (ICD-10-PCS; 2019-01-04)
PROC: B2151ZZ Fluoroscopy of Left Heart using Low Osmolar Contrast (ICD-10-PCS; 2019-01-04)
PROC: 027136Z Dilation of Coronary Artery, Two Arteries with Three Drug-eluting Intraluminal Devices, Percutaneous Approach (ICD-10-PCS; principal; 2019-01-04 15:36)
PROC: 4A023N7 Measurement of Cardiac Sampling and Pressure, Left Heart, Percutaneous Approach (ICD-10-PCS; 2019-01-04 15:36)
DX: I21.19 ST elevation (STEMI) myocardial infarction involving other coronary artery of inferior wall (principal); I42.9 Cardiomyopathy, unspecified; T82.855A Stenosis of coronary artery stent, initial encounter; E78.5 Hyperlipidemia, unspecified; I10 Essential (primary) hypertension; I25.10 Atherosclerotic heart disease of native coronary artery without angina pectoris; I25.2 Old myocardial infarction; Y83.1 Surgical operation with implant of artificial internal device as the cause of abnormal reaction of the patient, or of later complication, without mention of misadventure at the time of the procedure; Z79.899 Other long term (current) drug therapy; D72.829 Elevated white blood cell count, unspecified; R73.9 Hyperglycemia, unspecified
CPT/HCPCS: 36415; 71045; 80048; 80053; 82550; 82553; 84484; 85025; 85610; 85730; 93306; 93458; 96374; 96375; 99285; C1874

== ENCOUNTER → 2019-01-27 | Outpatient (CLI) | payer MEDICARE, BC ==
--- NOTE | 2019-01-30 14:12 | PE ---
Nuclear medicine PET/CT HISTORY: Head and neck cancer, initial, tonsil carcinoma Patient received 11.4 mCi F-18 FDG intravenously in delayed scanning was performed from the skull bas e to the mid thighs. Localization and attenuation correction CT scan was performed. Small [id number] imaging of the neck. Neck and chest: At the level of the palatine tonsil on the right there is soft tissue fullness, there is associated hypermetabolic uptake, SUV 12.5. The jugulodigastric node is enlarged and shows associ ated hypermetabolic uptake, SUV 10.2 on the right, more inferiorly anterior cervical node is also enl arged and shows hypermetabolic uptake, SUV 11.1 level of the hyoid bone. Smaller nodes are also prese nt, there is a node between the 2 enlarged nodes showing only mild uptake. No supraclavicular adenopathy. No mediastinal, axillary, or hilar adenopathy. There are coronary calc ifications. There is a hiatal hernia present. No evident lung mass. There are coronary calcifications . No pleural pericardial effusion. ABDOMEN: There is no retroperitoneal adenopathy or liver mass. No suspicious hypermetabolic uptake. Osseous structures are within normal limits. 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 Additional findings ab ove.
== END | disposition home or self-care (01) ==
LOC: RADPETMAIN 07:57
PROVIDERS: ATTEND Radiology Radiation Oncology
DX: C09.8 Malignant neoplasm of overlapping sites of tonsil (principal); R59.1 Generalized enlarged lymph nodes; I25.10 Atherosclerotic heart disease of native coronary artery without angina pectoris; K44.9 Diaphragmatic hernia without obstruction or gangrene
CPT/HCPCS: 78815; A9552

== ENCOUNTER → 2019-07-07 | Outpatient (CLI) | payer MEDICARE, BC ==
--- NOTE | 2019-07-10 06:31 | PE ---
EXAMINATION TYPE: PET CT fusion skull to thigh DATE OF EXAM: 07/07/2019 COMPARISON: Prior PET/CT January 27, 2019 HISTORY: Tonsillar neoplasm progress study. Completed chemotherapy and radiation treatment April. TECHNIQUE: Following the intravenous administration of 11.57 mCi of F-18 FDG, whole body images are performed from the skull base to the midthigh. Images are reviewed on the computer in the coronal, a xial, and sagittal planes. Reconstructed rotating images are created on independent workstation and reviewed on the computer. A noncontrast CT is performed in conjunction with the PET scan. Dedicated neck PET/CT imaging also performed. SCAN: Subsequent Scan FINDINGS: SKULL BASE AND NECK: Area of asymmetric soft tissue fullness and hypermetabolic uptake right tonsill ar fossa and there are axial image 41 carotid study shows no hypermetabolic uptake with marked improv ement in local mass effect consistent with diminished size of lesion at this level. Adjacent right ne ck adenopathy is diminished in size and is also a metabolic on current exam. No new suspicious adenop athy or hypermetabolic uptake identified. CHEST, MEDIASTINUM, AND HILAR REGION: No new areas of suspicious hypermetabolic uptake. ABDOMEN AND PELVIS: No new areas of suspicious hypermetabolic uptake. OSSEOUS STRUCTURES: No new areas of suspicious hypermetabolic uptake. OTHER CT: Coronary artery calcification and/or stents redemonstrated. Heart size mildly enlarged. Menstruation of multiple bilateral renal calculi. Redemonstration small fat-containing right inguinal hernia. Straightening of enlarged prostate gland bulging on bladder base with dependent calculi in the bladder. Redemonstration of S-shaped scoliotic curvature with multilevel spurring and disc space narrowing th roughout the thoracolumbar spine. IMPRESSION: Complete positive treatment response without new or abnormal areas of hypermetabolic upta ke on current study.
== END | disposition home or self-care (01) ==
LOC: RADPETMAIN 07:30
PROVIDERS: ATTEND Radiology Radiation Oncology
DX: C09.8 Malignant neoplasm of overlapping sites of tonsil (principal); Z92.3 Personal history of irradiation
CPT/HCPCS: 78815; A9552

== ENCOUNTER → 2021-06-01 | Outpatient (CLI) | payer MEDICARE, BC ==
--- NOTE | 2021-06-01 10:16 | CT ---
EXAMINATION TYPE: CT chest wo con DATE OF EXAM: 06/01/2021 COMPARISON: PET CT July 07, 2019 and January 27, 2019. HISTORY: Malignant neoplasm of oropharynx CT DLP: 374.0 mGycm. Automated Exposure Control for Dose Reduction was Utilized. TECHNIQUE: CT scan of the thorax is performed without IV contrast. FINDINGS: LUNGS: Scattered small nodules are present currently. Stable 3 mm lateral right mid lung nodule axial image 39 from PET/CT studies. Likely stable 3 mm left lower lobe nodule axial image 37. No definitiv e greater than 5 mm pulmonary nodules or masses. No pleural effusion or pneumothorax seen bilaterally . MEDIASTINUM: Lack of IV contrast is noted to limit evaluation for mediastinal and especially hilar ad enopathy. There are no definitive greater than 1 cm hilar or mediastinal lymph nodes. No cardiomega ly or pericardial effusion is seen. Ascending aorta measures up to 3.9 cm in diameter. Coronary arter y calcification and/or stents are redemonstrated. Unusual appearance to left ventricular wall with cu rvilinear fat density and surrounding soft tissue/fluid curvilinear density OTHER: Multiple nonobstructing bilateral renal calculi are redemonstrated bilaterally. Slight scoliot ic curvature. Multilevel spurring in the spine. Right L2-L3 moderate to severe disc space narrowing a nd spurring. IMPRESSION: No suspicious new greater than 5 mm pulmonary nodules to suggest new metastatic disease.
== END | disposition home or self-care (01) ==
LOC: RADCTMAIN 09:26
PROVIDERS: ATTEND Internal Medicine Hematology & Oncology
DX: C10.9 Malignant neoplasm of oropharynx, unspecified (principal); R91.8 Other nonspecific abnormal finding of lung field
CPT/HCPCS: 71250

== ENCOUNTER → 2022-04-06 | Outpatient (CLI) | payer MEDICARE, BC ==
[2022-04-06 10:30] LABS: Basophils # (A) 0.07 X 10*3/uL (0.00-0.10); Basophils % (A) 0.8 %; Eosinophils # (A) 0.37 X 10*3/uL (0.04-0.35); Eosinophils % (A) 4.2 %; HGB 15.5 g/dL (13.0-17.0); Immature Grans, Automated 0.2 %; Lymphocytes # (A) 3.28 X 10*3/uL (0.90-5.00); Lymphocytes % (A) 37.3 %; MCH 30.5 pg (27.0-32.0); MCHC 32.3 g/dL (32.0-37.0); MCV 94.3 fL (80.0-97.0); Mean Platelet Volume 11.5 fL (9.5-12.2); Monocytes # (A) 0.82 X 10*3/uL (0.20-1.00); Monocytes % (A) 9.3 %; NRBC Per 100 WBC 0 /100 WBCS (0.0-0.0); Neutrophils # (A) 4.23 X 10*3/uL (1.80-7.70); Neutrophils % (A) 48.2 %; Platelet Count 209 X 10*3/uL (140-440); RBC 5.09 X 10*6/uL (4.40-5.60); RDW 13.1 % (11.5-14.5); WBC 8.79 X 10*3/uL (4.50-10.00)
[2022-04-06 10:40] LABS: ALT 12 U/L (10-49); AST 23 U/L (14-35); African American GFR (CKD) 54.5 (60.0-200.0); Albumin 4.2 g/dL (3.8-4.9); Albumin/Globulin Ratio 1.81 (1.60-3.17); Alkaline Phosphatase 61 U/L (41-126); BUN/Creat Ratio 13.74 Ratio (12.00-20.00); Blood Urea Nitrogen 20.2 mg/dL (9.0-27.0); Calcium 9.3 mg/dL (8.7-10.3); Carbon Dioxide 26.1 mmol/L (20.0-27.5); Chloride 105 mmol/L (96-109); Chol/HDL Ratio 4.04 Ratio; Globulin 2.3 g/dL (1.6-3.3); Glucose 90 mg/dL (70-110); LDL Cholesterol,Calculated 148.2 mg/dL (0.0-131.0); Sodium 142 mmol/L (135-145); Total Protein 6.5 g/dL (6.2-8.2); VLDL Calculation 17.34 mg/dL (5.00-40.00)
== END | disposition home or self-care (01) ==
LOC: LABWHC1 07:11
PROVIDERS: ATTEND Family Medicine
DX: Z00.00 Encounter for general adult medical examination without abnormal findings (principal)
CPT/HCPCS: 36415; 80053; 80061; 84153; 84443; 85025

== ENCOUNTER → 2022-06-23 | Outpatient (CLI) | payer MEDICARE, BC ==
--- NOTE | 2022-06-23 11:13 | CT ---
EXAMINATION TYPE: CT chest wo con DATE OF EXAM: 06/23/2022 COMPARISON: 06/01/2021 HISTORY: follow up for malignant neoplasm of oropharynx. CT DLP: 412.10 mGycm. Automated Exposure Control for Dose Reduction was Utilized. TECHNIQUE: CT scan of the thorax is performed without IV contrast. FINDINGS: LUNGS: The lungs are grossly clear, there is no concerning consolidative pneumonia identified. Ther e is no pleural effusion or pneumothorax seen. The tracheobronchial tree is patent. Subpleural nodul arity involving the lung apex measuring 5 mm or less is stable. Tiny 2 mm nodule left lower lobe stab le. Right midlung nodule previously noted measuring 3 mm stable. MEDIASTINUM: Lack of IV contrast is noted to limit evaluation for mediastinal and especially hilar ad enopathy. There are no definitive greater than 1 cm hilar or mediastinal lymph nodes. No cardiomega ly or pericardial effusion is seen. Ascending aorta measures up to 3.9 cm in diameter. Coronary arter y calcification and/or stents are redemonstrated. OTHER: Hypertrophic and degenerative changes of the spine. Small hiatal hernia. There are numerous bi lateral less than 1 cm nonobstructing renal calculi IMPRESSION: 1. Stable sub-5 mm pulmonary nodules unchanged from prior exam. No new suspicious nodules are seen. 2. Nonobstructing bilateral multiple renal calculi.
== END | disposition home or self-care (01) ==
LOC: RADCTMAIN 10:30
PROVIDERS: ATTEND Internal Medicine Hematology & Oncology
DX: C10.9 Malignant neoplasm of oropharynx, unspecified (principal); N20.0 Calculus of kidney; R91.8 Other nonspecific abnormal finding of lung field
CPT/HCPCS: 71250

== ENCOUNTER → 2024-05-01 | Outpatient (CLI) | payer MEDICARE, BC ==
[2024-05-01 15:14] LABS: Basophils # (A) 0.07 X 10*3/uL (0.00-0.10); Basophils % (A) 0.9 %; Eosinophils # (A) 0.43 X 10*3/uL (0.04-0.35); Eosinophils % (A) 5.3 %; HCT 48.2 % (37.2-50.0); HGB 15.6 g/dL (12.0-17.0); Lymphocytes # (A) 2.45 X 10*3/uL (0.90-5.00); Lymphocytes % (A) 29.9 %; MCH 31.1 pg (27.0-32.0); MCHC 32.4 g/dL (32.0-37.0); MCV 96.2 FL (80.0-97.0); Mean Platelet Volume 12.1 FL (9.5-12.2); Monocytes # (A) 0.69 X 10*3/uL (0.20-1.00); Monocytes % (A) 8.4 %; NRBC Per 100 WBC 0 X 10*3/uL (0.00-0.01); Neutrophils # (A) 4.53 X 10*3/uL (1.80-7.70); Neutrophils % (A) 55.3 %; Platelet Count 213 X 10*3/uL (140-440); RBC 5.01 X 10*6/uL (4.10-5.60); RDW 13.3 % (11.5-14.5); WBC 8.19 X 10*3/uL (4.50-10.00)
[2024-05-01 18:59] LABS: ALT 18 U/L (8-49); AST 25 U/L (13-35); Albumin 4.2 g/dL (3.8-4.9); Albumin/Globulin Ratio 2.33 Ratio (1.60-3.17); Alkaline Phosphatase 60 U/L (41-126); BUN/Creat Ratio 13.54 Ratio (12.00-20.00); Blood Urea Nitrogen 17.6 mg/dL (9.0-27.0); Calcium 9.4 mg/dL (8.7-10.3); Carbon Dioxide 24.2 mmol/L (21.6-31.8); Chloride 107 mmol/L (96-109); Chol/HDL Ratio 3.78 Ratio; Globulin 1.8 g/dL (1.6-3.3); Glucose 89 mg/dL (70-110); LDL Cholesterol,Calculated 130.6 mg/dL (0.0-131.0); Potassium 4.6 mmol/L (3.5-5.5); Sodium 142 mmol/L (135-145); Total Bilirubin 0.4 mg/dL (0.3-1.2); VLDL Calculation 18.72 mg/dL (5.00-40.00)
== END ==
LOC: LABWHC1 09:19
PROVIDERS: ATTEND Family Medicine
DX: I25.10 Atherosclerotic heart disease of native coronary artery without angina pectoris (principal); Z12.5 Encounter for screening for malignant neoplasm of prostate; Z00.00 Encounter for general adult medical examination without abnormal findings; Z13.220 Encounter for screening for lipoid disorders; Q61.5 Medullary cystic kidney; E53.8 Deficiency of other specified B group vitamins; E55.9 Vitamin D deficiency, unspecified
CPT/HCPCS: 36415; 80053; 80061; 82306; 82607; 83036; 84153; 84443; 85025

== ENCOUNTER 2025-02-06 21:22 | Inpatient (IN) | payer MEDICARE, BC ==
[2025-02-06 21:42] LABS: Basophils # (A) 0.09 10*3/uL (0.00-0.10); Basophils % (A) 0.8 %; Eosinophils # (A) 0.42 10*3/uL (0.04-0.35); Eosinophils % (A) 3.8 %; HCT 48.8 % (39.6-50.0); HGB 16.6 g/dL (13.0-17.0); Lymphocytes # (A) 4.53 10*3/uL (0.90-5.00); Lymphocytes % (A) 40.5 %; MCH 31.5 pg (27.0-32.0); MCV 92.6 fL (80.0-97.0); Mean Platelet Volume 11.5 fL (9.5-12.2); Monocytes # (A) 0.86 10*3/uL (0.20-1.00); Monocytes % (A) 7.7 %; Neutrophils # (A) 5.26 10*3/uL (1.80-7.70); Platelet Count 230 10*3/uL (140-440); RBC 5.27 10*6/uL (4.40-5.60); WBC 11.18 10*3/uL (4.50-10.00)
[2025-02-06 21:51] LABS: Partial Thromboplastin Time 23.6 sec (22.0-30.0)
--- NOTE | 2025-02-06 21:53 | XR ---
EXAMINATION TYPE: XR chest 2V DATE OF EXAM: 02/06/2025 9:47 PM COMPARISON: 01/04/2019 CLINICAL INDICATION: Male, 75 years old with history of Chest Pain, TECHNIQUE: XR chest 2V view(s) obtained. FINDINGS: The heart size is normal. The pulmonary vasculature is normal. The lungs are clear. IMPRESSION: 1. No acute pulmonary process. [facility], , 02/06/2025 9:51 PM
[2025-02-06 22:06] LABS: ALT 15 U/L (4-49); African American GFR (CKD) 60 (>60 ml/min/1.73 sqM); Albumin 4.7 g/dL (3.5-5.0); Anion Gap 12 mmol/L; Blood Urea Nitrogen 28 mg/dL (9-20); Calcium 9.6 mg/dL (8.4-10.2); Carbon Dioxide 23 mmol/L (22-30); Chloride 106 mmol/L (98-107); Glucose 135 mg/dL (74-99); Non-African American GFR(CKD) 52 (>60 ml/min/1.73 sqM); Sodium 141 mmol/L (137-145); Total Bilirubin 0.7 mg/dL (0.2-1.3); Total Protein 7.3 g/dL (6.3-8.2)
[2025-02-06 22:20] LABS: AST 30 U/L (17-59); Alkaline Phosphatase 67 U/L (38-126); Magnesium 1.9 mg/dL (1.6-2.3); Potassium 4.2 mmol/L (3.5-5.1)
--- NOTE | 2025-02-06 22:49 | ED ---
Chest Pain HPI - General Chief Complaint: Chest Pain Stated Complaint: Chest Pain Time Seen by Provider: 02/06/25 22:33 Source: patient Mode of arrival: ambulatory Limitations: no limitations - History of Present Illness Initial Comments: This patient is a 75-year-old man with history of previous WI requiring stent in 2000 and 2018. He arrives to have evaluation today for chest pain that started around 9 PM. He indicates the bilateral upper chest. He states that it feels like a stiffness. He has not noted worsening or relieving factors. When the pain persisted he had his drive him here and he states when he was about shelter to the hospital the symptoms resolved. He did not have associated symptoms, no dyspnea, diaphoresis, nausea or vomiting. MD Complaint: chest pain Onset/Timin -: hour(s) Onset: during rest Pain Location: left chest, right chest Pain Radiation: none Severity: moderate Quality: other (Like a stiffness) Consistency: now resolved Improves With: nothing Worsens With: nothing Treatments Prior to Arrival: none - Related Data Home Medications Medication Instructions Recorded Confirmed Cholecalciferol [Vitamin D3 (25 25 mcg PO PC-LUNCH 02/07/25 02/07/25 Mcg = 1000 Iu)] Vitamin B-12(Unknown Dose) 1 tab PO PC-LUNCH 02/07/25 02/07/25 Previous Rx's Medication Instructions Recorded Apixaban [Eliquis] 5 mg PO BID #60 tab 02/10/25 Aspirin 81 mg PO DAILY #30 tab 02/10/25 Atorvastatin [Lipitor] 40 mg PO HS #30 tab 02/10/25 Dapagliflozin Propanediol [Farxiga] 10 mg PO DAILY #30 tab 02/10/25 Ezetimibe [Zetia] 10 mg PO DAILY #30 tab 02/10/25 Metoprolol Tartrate [Lopressor] 25 mg PO BID #60 tab 02/10/25 Nitroglycerin Sl Tabs [Nitrostat] 0.4 mg SUBLINGUAL Q5M PRN #20 tab 02/10/25 Sacubitril/Valsartan [Entresto 24 0.5 each PO BID #60 tab 02/10/25 mg-26 mg Tablet] Spironolactone [Aldactone] 12.5 mg PO DAILY #30 tab 02/10/25 Ticagrelor [Brilinta] 90 mg PO BID #60 tab 02/10/25 Allergies Allergy/AdvReac Type Severity Reaction Status Date / Time wheat Allergy Severe Swelling Verified 02/07/25 07:02 gluten AdvReac Intermediate Nausea & Verified 02/07/25 07:02 Vomiting & Swelling Review of Systems ROS Statement: Those systems with pertinent positive or pertinent negative responses have been documented in the HPI. ROS Other: All systems not noted in ROS Statement are negative. Constitutional: Denies: fever, chills Eyes: Denies: vision change Respiratory: Denies: cough, dyspnea Cardiovascular: Reports: chest pain. Denies: palpitations, orthopnea, edema, syncope Gastrointestinal: Denies: abdominal pain, nausea, vomiting Genitourinary: Denies: dysuria, hematuria Musculoskeletal: Denies: back pain Skin: Denies: rash Neurological: Denies: headache, weakness, numbness EKG Findings - EKG Results: EKG: interpreted by NIKKI, sinus rhythm (Rate 79 bpm) - Blocks, [place], Hypertrophy, ST Abn: QRS axis and voltage: low voltage (<0.5 MV total QRS and <1.0 MV in each pr ecordial lead) - WI, Pacemaker, Normal: Myocardial infarction: inferior WI (old age indeterminate), septal WI (old age or indeterminate), anterior WI (old age or indeterminate) Past Medical History Past Medical History: Coronary Artery Disease (CAD), Chest Pain / Angina, Hyperlipidemia, Hypertension, Myocardial Infarction (WI) Additional Past Medical History / Comment(s): Previous WI in 2001 with stent to LAD; gluten sensitivity, migraines, 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 Inguinal hernia Last Myocardial Infarction Date:: 01/04/19 History of Any Multi-Drug Resistant Organisms: None Reported Past Surgical History: Heart Catheterization With Stent, No Surgical Hx Reported Additional Past Surgical History / Comment(s): 2001 catherization with stent to LAD, 2019 RCA X 2 stents Past Anesthesia/Blood Transfusion Reactions: No Reported Reaction Date of Last Stent Placement:: 01/04/19 Past Psychological History: No Psychological Hx Reported Smoking Status: Never smoker Past Alcohol Use History: Occasional Past Drug Use History: None Reported - Past Family History Mother Family Medical History: Cancer Additional Family Medical History / Comment(s): Cancer liver Father History Unknown: Yes Family Medical History: Coronary Artery Disease (CAD) Additional Family Medical History / Comment(s): at age 47 from heart attack Sister(s) History Unknown: Yes Family Medical History: Diabetes Mellitus Additional Family Medical History / Comment(s): [place] General Exam Limitations: no limitations General appearance: alert, in no apparent distress Head exam: Present: atraumatic, normocephalic Eye exam: Present: normal appearance. Absent: scleral icterus, conjunctival injection Neck exam: Present: normal inspection Respiratory exam: Present: normal lung sounds bilaterally. Absent: respiratory distress, wheezes, rales, rhonchi, stridor, accessory muscle use Cardiovascular Exam: Present: regular rate, normal rhythm, normal heart sounds. Absent: systolic murmur, diastolic murmur, rubs, gallop GI/Abdominal exam: Present: soft. Absent: distended, tenderness, guarding, rebound, rigid, mass Extremities exam: Present: normal inspection, normal capillary refill. Absent: pedal edema, calf tenderness Back exam: Present: normal inspection. Absent: CVA tenderness (R), CVA tenderness (L) Neurological exam: Present: alert Skin exam: Present: warm, dry, intact, normal color. Absent: rash Course Vital Signs 02/06/25 02/06/25 02/07/25 21:23 22:59 04:00 Temperature 97.4 F L 98.6 F Pulse Rate 87 71 Pulse Rate [ 77 Bilateral Radial] Pulse Rate [ Developmental Education Instructor ] Respiratory 18 17 16 Rate Blood Pressure 120/79 127/87 Blood Pressure 125/70 [Left Arm] O2 Sat by Pulse 97 97 Oximetry 02/07/25 02/07/25 02/07/25 06:31 10:46 12:15 Temperature 97.9 F Pulse Rate 71 78 60 Pulse Rate [ Bilateral Radial] Pulse Rate [ Developmental Education Instructor ] Respiratory 20 16 17 Rate Blood Pressure 118/78 125/89 114/79 Blood Pressure [Left Arm] O2 Sat by Pulse 96 95 95 Oximetry 02/07/25 02/07/25 02/07/25 14:00 14:53 15:17 Temperature 97.8 F 97.8 F Pulse Rate 74 65 Pulse Rate [ Bilateral Radial] Pulse Rate [ 71 Developmental Education Instructor ] Respiratory 16 17 16 Rate Blood Pressure 117/74 115/65 Blood Pressure 108/70 [Left Arm] O2 Sat by Pulse 98 95 93 L Oximetry Chest Pain [facility] Patient had chest x-ray that I interpreted as negative for acute infiltrate, pneumothorax, congestive heart failure Was pt. sent in by a medical professional or institution (, KENDRA, EARLY CHILDHOOD LEAD TEACHER, urgent care, hospital, or shelter...) When possible be specific @ -[No] Did you speak to anyone other than the patient for history (EMS, parent, family, police, friend...)? What history was obtained from this source @ -[No] Did you review nursing and triage notes (agree or disagree)? Why? @ -[I reviewed and agree with nursing and triage notes] Were old charts reviewed (outside hosp., previous admission, EMS record, old EKG, old radiological studies, urgent care reports/EKG's, shelter records)? Report findings @ -[No old charts were reviewed] Differential Diagnosis (chest pain, altered mental status, abdominal pain women, abdominal pain men, vaginal bleeding, weakness, fever, dyspnea, syncope, headache, dizziness, GI bleed, back pain, seizure, CVA, palpatations, mental health, musculoskeletal)? @ -Differential Chest Pain: Stable Angina, Unstable Angina, STEMI, NSTEMI Aortic Dissection, Pneumothorax, Musculoskeletal, Esophageal Spasm GERD, Cholecystitis, Pancreatitis, Zoster, this is not meant to be an all-inclusive list. EKG interpreted by me (3pts min.). @ -[I interpreted as above] X-rays interpreted by me (1pt min.). @ -[I interpreted as above CT interpreted by me (1pt min.). @ -[None done] U/S interpreted by me (1pt. min.). @ -[None done] What testing was considered but not performed or refused? (CT, X-rays, U/S, labs)? Why? @ -[None] What meds were considered but not given or refused? Why? @ -[None] Did you discuss the management of the patient with other professionals (professionals i.e. , KENDRA, EARLY CHILDHOOD LEAD TEACHER, lab, RT, psych nurse, mental health social worker, quarry supervisor, teacher, traffic police officer, pillowcase cutter)? Give summary @ -[Discussed with admitting physician and with cardiology and treatment recommendations incorporated Was smoking cessation discussed for >3mins.? @ -[No] Was critical care preformed (if so, how long)? @ -[Yes, 35 minutes Were there social determinants of health that impacted care today? How? (Homelessness, low income, unemployed, alcoholism, drug addiction, transportation, low edu. Level, literacy, decrease access to med. care, care home, rehab)? @ -[No] Was there de-escalation of care discussed even if they declined (Discuss DNR or withdrawal of care, Hospice)? DNR status @ -[No] What co-morbidities impacted this encounter? (DM, HTN, Smoking, COPD, CAD, Cancer, CVA, ARF, Chemo, Hep., AIDS, mental health diagnosis, sleep apnea, morbid obesity)? @ -[Pretension, CAD, ischemic cardiomyopathy Was patient admitted / discharged? Hospital course, mention meds given and rout e, prescriptions, significant lab abnormalities, going to OR and other pertinent info. @ -[Patient is 75-year-old man here with chest pain and found to have elevated troponin. The patient is admitted, will have cardiology consultation, started on heparin. Undiagnosed new problem with uncertain prognosis? @ -[No] Drug Therapy requiring intensive monitoring for toxicity (Heparin, Nitro, Insulin, Cardizem)? @ -IV heparin Were any procedures done? @ -[No] Diagnosis/symptom? @ -[Acute NSTEMI Acute chest pain Acute, or Chronic, or Acute on Chronic? @ -[Acute Uncomplicated (without systemic symptoms) or Complicated (systemic symptoms)? @ -Uncomplicated Side effects of treatment? @ -[No] Exacerbation, Progression, or Severe Exacerbation? @ -[No] Poses a threat to life or bodily function? How? (Chest pain, [place], WI, pneumonia, PE, COPD, DKA, ARF, appy, cholecystitis, CVA, Diverticulitis, Homicidal, Suicidal, threat to staff... and all critical care pts) @ -Yes, requires cardiology evaluation All treatments are based on ideal body weight as in ED triage Disposition Clinical Impression: NSTEMI (non-ST elevated myocardial infarction) Disposition: ADMITTED IP TO THIS HOSP Condition: Fair Is patient prescribed a controlled substance at d/c from ED?: No
[2025-02-06] MEDS: ASPIRIN 81 MG PO STA (22:51)
[2025-02-06] MEDS: HEPARIN SODIUM 1,000 UN/ML (10ML VL) IV ONE (22:56)
[2025-02-06] MEDS: HEPARIN SOD,PORK IN 0.45% NACL 25,000 UNIT in 0.45% NACL 1 250ML.BAG IV SCH (22:57)
[2025-02-06] MEDS: ATORVASTATIN 80 MG TAB PO SCH (23:00)
[2025-02-06] MEDS: METOPROLOL TARTRATE 25 MG TAB PO SCH (23:02)
[2025-02-07 06:56] LABS: Mean Platelet Volume 11.1 fL (9.5-12.2); Platelet Count 213 10*3/uL (140-440)
[2025-02-07] MEDS: HEPARIN SODIUM 1,000 UN/ML (10ML VL) IV PRN (07:31)
[2025-02-07] MEDS ORDERED: ASPIRIN 325 MG TAB PO SCH (09:00)
[2025-02-07] MEDS ORDERED: ALPRAZolam 0.5 MG TAB PO PRN (10:18)
[2025-02-07] MEDS ORDERED: ALPRAZolam 0.25 MG TAB PO PRN (10:18)
[2025-02-07] MEDS: ASPIRIN 81 MG PO SCH (10:23)
[2025-02-07 10:35] LABS: Chol/HDL Ratio 3.91 Ratio; LDL Cholesterol,Calculated 138.2 mg/dL (0.0-131.0); VLDL Calculation 12.88 mg/dL (5.00-40.00)
[2025-02-07] MEDS: SODIUM CHLORIDE 0.9% 1,000 ML IV SCH (10:37)
[2025-02-07] MEDS: ATORVASTATIN 80 MG TAB PO STA (10:38)
[2025-02-07] MEDS: ASPIRIN 325 MG TAB PO STA (10:39)
--- NOTE | 2025-02-07 12:01 | P.CRDCN ---
History of Present Illness Consult date: 02/07/25 Reason for Consult (text): NSTEMI History of present illness: This is a 75-year-old male patient previously seen by with past medical history of coronary artery disease status post prior stenting of the LAD and RCA, ischemic cardiomyopathy, hypertension, dyslipidemia, intolerance to statins, throat cancer in remission. Patient was last evaluated on a telehealth visit 05/13/2020. He has not been following with any other home service consultant. We have been asked to evaluate the patient for NSTEMI. Patient gives history that he had a heart attack in 2001 and also heart attack in 2019. Patient states that he developed tightness in his chest around 9:00 last evening. He states yesterday he was very active but was also under a lot of stress yesterday. His pain was initially 2-3 went up to a #5 and by the time he got to the hospital it was down. He states the pain lasted for about 30 minutes and is completely gone now. He is a non-smoker. Good blood pressure 118/78, heart rate 71, pulse ox 96% on room air. Patient has been started on a heparin drip. Patient is seen today in the emergency center waiting for a bed on the cardiac stepdown unit. Dr. Contreras discussed with the patient recommendation for cardiac catheterizati on and patient would like to move forward with this. Patient is requesting to be done by Dr. Cruz as he knows him from the past. -EKG: Sinus rhythm, low voltage -Chest x-ray: No acute process. -Laboratory studies: Troponin 0.254, 0.368, 0.747. BUN 28 creatinine 1.34. WBC 11.1, hemoglobin 16.6. -Home cardiac medications: Aspirin 81 mg daily. - Cardiolite stress test performed in the office 10/10/2019 revealed excellent exercise capacity. Normal EKG response. Abnormal myocardial perfusion imaging with fixed defect of large size in the distal anterior, apical, inferior apical segments of the left ventricle and represents prior LA. No stress-induced ischemia. EF 46%. -Echocardiogram performed in the office on 10/04/2019 revealed EF 40 to 45% mild concentric hypertrophy. Aortic valve calcified. No regurgitation. Moderate mitral regurgitation. Mild tricuspid regurgitation. Moderate pulmonary regurgitation. -Cardiac catheterization performed 2018 revealed 100% mid RCA, 70% distal RCA, patent stent in the proximal LAD and underwent PCI with stent to the mid RCA and stent to the distal RCA Review Of Systems: At the time of my exam: CONSTITUTIONAL: Denies fever or chills. HEENT: Denies blurred vision, vision changes, or eye pain. Denies hemoptysis CARDIOVASCULAR: Denies chest pain. Denies orthopnea. Denies PND. Denies palpitations RESPIRATORY: Denies shortness of breath. GASTROINTESTINAL: Denies abdominal pain. Denies nausea or vomiting. HEMATOLOGIC: Denies bleeding disorders. GENITOURINARY: Denies any blood in urine. SKIN: Denies puritis. Denies rash. Physical examination: Gen: This is 75-year-old male in no acute distress VS: reviewed HEENT: Head is atraumatic, normocephalic. Pupils equal, round. Sclerae is anicteric. NECK: Supple. No JVD. LUNGS: Clear to auscultation. No wheezes or rhonchi. No intercostal retractions. HEART: Regular rate and rhythm. No murmur. ABDOMEN: Soft No tenderness. EXTREMITIES: No pedal edema. No calf tenderness. NEUROLOGICAL: Patient is awake, alert and oriented x3. Assessment: NSTEMI History of coronary artery disease with previous stenting to the mid RCA and distal RCA in 2019 Ischemic cardiomyopathy with previous EF 40 to 45% Hypertension Dyslipidemia History of throat cancer Plan: Continue patient on aspirin 81 mg daily, atorvastatin, Lopressor Continue heparin drip Schedule patient for cardiac catheterization today with Dr. Cruz Obtain 2-D echocardiogram and Doppler study to assess cardiac structure and func tion Further recommendations to follow based upon clinical course Thank you kindly for this consultation. Nurse practitioner note has been reviewed, I agree with documented findings and plan of care. Patient was seen and examined. Past Medical History Past Medical History: Coronary Artery Disease (CAD), Chest Pain / Angina, Hyperlipidemia, Hypertension, Myocardial Infarction (LA) Additional Past Medical History / Comment(s): Previous LA in 2001 with stent to LAD; gluten sensitivity, migraines, 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 Inguinal hernia Last Myocardial Infarction Date:: 01/04/19 History of Any Multi-Drug Resistant Organisms: None Reported Past Surgical History: Heart Catheterization With Stent, No Surgical Hx Reported Additional Past Surgical History / Comment(s): 2001 catherization with stent to LAD, 2019 RCA X 2 stents Past Anesthesia/Blood Transfusion Reactions: No Reported Reaction Date of Last Stent Placement:: 01/04/19 Past Psychological History: No Psychological Hx Reported Smoking Status: Never smoker Past Alcohol Use History: Occasional Past Drug Use History: None Reported - Past Family History Mother Family Medical History: Cancer Additional Family Medical History / Comment(s): Cancer liver Father History Unknown: Yes Family Medical History: Coronary Artery Disease (CAD) Additional Family Medical History / Comment(s): at age 47 from heart attack Sister(s) History Unknown: Yes Family Medical History: Diabetes Mellitus Additional Family Medical History / Comment(s): [place] Medications and Allergies Home Medications Medication Instructions Recorded Confirmed Type Aspirin EC [Ecotrin Low Dose] 81 mg PO PC-LUNCH 02/07/25 02/07/25 History Cholecalciferol [Vitamin D3 (25 25 mcg PO PC-LUNCH 02/07/25 02/07/25 History Mcg = 1000 Iu)] Vitamin B-12(Unknown Dose) 1 tab PO PC-LUNCH 02/07/25 02/07/25 History Allergies Allergy/AdvReac Type Severity Reaction Status Date / Time wheat Allergy Severe Swelling Verified 02/07/25 07:02 gluten AdvReac Intermediate Nausea & Verified 02/07/25 07:02 Vomiting & Swelling Physical Exam Vitals: Vital Signs Temp Pulse Pulse Resp BP BP Pulse Ox 02/07/25 06:31 97.9 F 71 20 118/78 96 02/07/25 04:00 98.6 F 77 16 125/70 02/06/25 22:59 71 17 127/87 97 02/06/25 21:23 97.4 F L 87 18 120/79 97 Intake and Output 02/06/25 02/07/25 02/07/25 22:59 06:59 14:59 Intake Total 82.624 Balance 82.624 Intake: Intake, IV Titration 82.624 Amount Heparin Sod,Pork in 0.45% 82.624 NaCl 25,000 unit In 0.45 % NaCl 1 250ml.bag @ 11.5 UNITS/KG/HR 10.015 mls/ hr IV .Q24H [facility] Rx#: [id number] Other: Voiding Method Toilet Weight 87.09 kg Results 02/07/25 06:28 02/06/25 21:33 Cardiac Enzymes 02/06/25 02/06/25 02/06/25 Range/Units 21:33 21:33 22:52 AST 30 (17-59) U/L Troponin I 0.254 H* 0.368 H* (0.000-0.034) ng/mL 02/07/25 Range/Units 02:21 AST (17-59) U/L Troponin I 0.747 H* (0.000-0.034) ng/mL Coagulation 02/06/25 02/06/25 02/07/25 Range/Units 21:33 22:52 06:28 PT 11.0 (10.0-12.5) sec APTT 23.6 23.1 38.9 H (22.0-30.0) sec CBC 02/06/25 02/07/25 Range/Units 21:33 06:28 WBC 11.18 H (4.50-10.00) 10*3/uL RBC 5.27 (4.40-5.60) 10*6/uL Hgb 16.6 (13.0-17.0) g/dL Hct 48.8 (39.6-50.0) % Plt Count 230 213 (140-440) 10*3/uL Comprehensive Metabolic Panel 02/06/25 Range/Units 21:33 Sodium 141 (137-145) mmol/L Potassium 4.2 (3.5-5.1) mmol/L Chloride 106 (98-107) mmol/L Carbon Dioxide 23 (22-30) mmol/L BUN 28 H (9-20) mg/dL Creatinine 1.34 H (0.66-1.25) mg/dL Glucose 135 H (74-99) mg/dL Calcium 9.6 (8.4-10.2) mg/dL AST 30 (17-59) U/L ALT 15 (4-49) U/L Alkaline Phosphatase 67 (38-126) U/L Total Protein 7.3 (6.3-8.2) g/dL Albumin 4.7 (3.5-5.0) g/dL Current Medications Generic Name Dose Route Start Last Admin Trade Name Freq PRN Reason Stop Dose Admin Aspirin 325 mg 02/07/25 09:00 Aspirin 325 Mg Tab PO DAILY [facility] Atorvastatin Calcium 80 mg 02/06/25 23:00 02/06/25 23:00 Atorvastatin 80 Mg Tab PO Not Given DAILY [facility] Heparin Sodium (Porcine) 0 unit 02/07/25 07:25 Heparin Sodium 1,000 Un/Ml (10ml Vl) IV PER PROTOCOL PRN Low PTT Protocol Heparin Sodium/Sodium Chloride 250 mls @ 10.015 mls/hr 02/06/25 22:45 02/07/25 07:12 25,000 unit/ Sodium Chloride IV 13.5 units/kg/hr .Q24H [facility] 11.757 mls/hr Titration Protocol 11.5 UNITS/KG/HR Metoprolol Tartrate 25 mg 02/06/25 23:00 02/06/25 23:02 Metoprolol Tartrate 25 Mg Tab PO Not Given BID [facility] Morphine Sulfate 4 mg 02/06/25 22:45 Morphine Sulfate 4 Mg/Ml Syringe IV Q5M PRN Chest Pain Intake and Output 02/06/25 02/07/25 02/07/25 22:59 06:59 14:59 Intake Total 82.624 Balance 82.624 Intake: Intake, IV Titration 82.624 Amount Heparin Sod,Pork in 0.45% 82.624 NaCl 25,000 unit In 0.45 % NaCl 1 250ml.bag @ 11.5 UNITS/KG/HR 10.015 mls/ hr IV .Q24H [facility] Rx#: [id number] Other: Voiding Method Toilet Weight 87.09 kg 02/07/25 06:28 02/06/25 21:33
[2025-02-07] MEDS ORDERED: NON FORMULARY DRUG (Aspirin Ec 81 MG Tablet) PO SCH (13:30)
[2025-02-07] MEDS: CHOLECALCIFEROL 25 MCG (1000 IU) TABLET PO SCH (13:38)
--- NOTE | 2025-02-07 17:15 | CA ---
Transthoracic Echo Report Name: Maksim Bryan Age: 75 Gender: M : 1950 Exam Date: 02/07/2025 08:44 Exam Location: [facility] Ht (in): 70 Wt (lb): 192 Ordering Physician: Maria Isabel Mcarthur Attending/Referring Phys: [id number], Blue Automatic Developer Salazar Gomez RDCS Procedure CPT: Indications: lvf, NSTEMI Cardiac Hx: Technical Quality: Technically difficult study Contrast 1: Definity Total Dose (mL): 2 Contrast 2: Total Dose (mL): MEASUREMENTS (Male / Female) Normal Values 2D ECHO LV Diastolic Diameter PLAX 5.3 cm 4.2 - 5.9 / 3.9 - 5.3 cm LV Systolic Diameter PLAX 4.6 cm IVS Diastolic Thickness 1.1 cm 0.6 - 1.0 / 0.6 - 0.9 cm LVPW Diastolic Thickness 1.1 cm 0.6 - 1.0 / 0.6 - 0.9 cm LV Relative Wall Thickness 0.4 RV Internal Dim ED PLAX 3.2 cm LVOT Diameter 2.3 cm LA Systolic Diameter LX 3.5 cm 3.0 - 4.0 / 2.7 - 3.8 cm LV Diastolic Volume MOD BP 154.0 cm??? 67 - 155 / 56 - 104 cm??? LV Systolic Volume MOD BP 118.0 cm??? 22 - 58 / 19 - 49 cm??? LV Ejection Fraction MOD BP 23.4 % >= 55 % LV Cardiac Index MOD BP 1206.3 cm???/min???m??? LV Diastolic Volume MOD 4C 142.2 cm??? LV Systolic Volume MOD 4C 111.9 cm??? LV Ejection Fraction MOD 4C 21.3 % LV Cardiac Index MOD 4C 1013.7 cm???/min???m??? LV Diastolic Length 4C 9.5 cm LV Systolic Length 4C 8.8 cm LV Diastolic Volume MOD 2C 145.6 cm??? LV Systolic Volume MOD 2C 93.9 cm??? LV Ejection Fraction MOD 2C 35.5 % LV Cardiac Index MOD 2C 1732.5 cm???/min???m??? LV Diastolic Length 2C 9.5 cm LV Systolic Length 2C 8.8 cm LA Volume 33.0 cm??? 18 - 58 / 22 - 52 cm??? LA Volume Index 15.8 cm???/m??? 16 - 28 cm???/m??? DOPPLER MV Area PHT 2.6 cm??? Mitral E Point Velocity 46.0 cm/s Mitral A Point Velocity 102.3 cm/s Mitral E to A Ratio 0.5 MV Deceleration Time 286.7 ms TR Peak Velocity 224.8 cm/s TR Peak Gradient 20.2 mmHg Right Atrial Pressure 5.0 mmHg Pulmonary Artery Systolic Pressu 25.2 mmHg Right Ventricular Systolic Press 25.2 mmHg FINDINGS Left Ventricle Left ventricular ejection fraction is estimated at 20-25%. Severely increased left ventricular systolic volume. Severely decreased left ventricular ejection fraction. Left ventricular apical thrombus. Pope akinetic. Right Ventricle Normal right ventricular size and function. Right ventricular systolic pressure within normal limits. Right Atrium Normal right atrial size. Left Atrium Normal left atrial size. Mitral Valve Structurally normal mitral valve. No mitral stenosis. Mild mitral regurgitation. Aortic Valve Trileaflet aortic valve. No aortic stenosis. Mild aortic regurgitation. Tricuspid Valve Structurally normal tricuspid valve. No tricuspid stenosis. Mild tricuspid regurgitation. Pulmonic Valve Pulmonic valve not well visualized. No pulmonic stenosis. Trace pulmonic regurgitation. Pericardium No pericardial effusion. Aorta Normal size aortic root and proximal ascending aorta. CONCLUSIONS LVEF 20 to 25% Severely dilated LV cavity with severely reduced function Apical hypokinesia with evidence of apical thrombus Normal RV size and systolic function Mild mitral regurgitation, mild tricuspid regurgitation, mild aortic regurgitation No pericardial effusion Previewed by: Dr Roberto Rendon (Electronically Signed) Final Date: 07 February 2025 17:14
--- NOTE | 2025-02-07 22:47 | P.HPIM ---
History of Present Illness H&P Date: 02/07/25 This is a pleasant 75 year old male with medical history of [place] with stenting in 2000 and 2019, hypertension, hyperlipidemia. Patient came in to the hospital with complaints of chest pain which was over the right chest wall and began at 9pm yesterday evening. He had no associated symptoms, denied palpitations, dizziness lightheadedness, or shortness of breath. No recent illness, no fever or chills noted. He states he had went grocery shopping and cut his grass states he had been moving about all day and then noted the onset of the chest pain. He pain dulled on the way to the hospital and upon arrival the chest pain had completely subsided. The pain had lasted 30 minutes. Chest xray on admission reveals no acute pulmonary process. Initial EKG reveals normal sinus rhythm heart rate of 79. BUN of 28, creatinine of 1.34. Troponin was elevated at 0.254, 0.368 and 0.747. He was started on IV heparin and admitted to the hospital with cardiology consultation. REVIEW OF SYSTEMS: CONSTITUTIONAL: No fever, no malaise, no fatigue. HEENT: No recent visual problems or hearing problems. Denied any sore throat. CARDIOVASCULAR: No chest pain, orthopnea, PND, no palpitations, no syncope. PULMONARY: No shortness of breath, no cough, no hemoptysis. GASTROINTESTINAL: No diarrhea, no nausea, no vomiting, no abdominal pain. NEUROLOGICAL: No headaches, no weakness, no numbness. HEMATOLOGICAL: Denies any bleeding or petechiae. GENITOURINARY: Denies any burning micturition, frequency, or urgency. MUSCULOSKELETAL/RHEUMATOLOGICAL: Denies any joint pain, swelling, or any muscle pain. ENDOCRINE: Denies any polyuria or polydipsia. The rest of the 14-point review of systems is negative. PHYSICAL EXAMINATION: GENERAL: The patient is alert and oriented x3, not in any acute distress. Well developed, well nourished. HEENT: Pupils are round and equally reacting to light. EOMI. No scleral icterus. No conjunctival pallor. Normocephalic, atraumatic. No pharyngeal erythema. No thyromegaly. CARDIOVASCULAR: S1 and S2 present. No murmurs, rubs, or gallops. PULMONARY: Chest is clear to auscultation, no wheezing or crackles. ABDOMEN: Soft, nontender, nondistended, normoactive bowel sounds. No palpable organomegaly. MUSCULOSKELETAL: No joint swelling or deformity. EXTREMITIES: No cyanosis, clubbing, or pedal edema. NEUROLOGICAL: Gross neurological examination did not reveal any focal deficits. SKIN: No rashes. Assessment Acute NSTEMI with troponin elevation Chest pain Mild renal injury, prerenal azotemia; dehydrational Hx of coronary artery disease with prior PCI Ischemic cardiomyopathy with previous EF 40 to 45% Hypertension Hyperlipidemia Hx of throat cancer in remission Former smoker GI prophylaxis Plan Continue IV heparin Pending cardiac catheterization as recommending by cardiology service Continue cardiac telemetry Continue normal saline and monitor renal function Pending 2D echocardiogram Continue aspirin, atorvastatin, lopressor Home medications resumed. The impression and plan of care has been dictated by Shana Gamino Nurse Practitioner as directed. Dr. Melchor MD I have performed a history and physical examination and medical decision making of this patient, discussed the same with the dictator, and agree with the dictators assessment and plan as written, documented as a scribe. Based on total visit time, I have performed more than 50% of this visit. Past Medical History Past Medical History: Coronary Artery Disease (CAD), Chest Pain / Angina, Hyperlipidemia, Hypertension, Myocardial Infarction (MN) Additional Past Medical History / Comment(s): Previous MN in 2001 with stent to LAD; gluten sensitivity, migraines, 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 Inguinal hernia Last Myocardial Infarction Date:: 01/04/19 History of Any Multi-Drug Resistant Organisms: None Reported Past Surgical History: Heart Catheterization With Stent, No Surgical Hx Reported Additional Past Surgical History / Comment(s): 2001 catherization with stent to LAD, 2019 RCA X 2 stents Past Anesthesia/Blood Transfusion Reactions: No Reported Reaction Date of Last Stent Placement:: 01/04/19 Past Psychological History: No Psychological Hx Reported Smoking Status: Never smoker Past Alcohol Use History: Occasional Past Drug Use History: None Reported - Past Family History Mother Family Medical History: Cancer Additional Family Medical History / Comment(s): Cancer liver Father History Unknown: Yes Family Medical History: Coronary Artery Disease (CAD) Additional Family Medical History / Comment(s): at age 47 from heart attack Sister(s) History Unknown: Yes Family Medical History: Diabetes Mellitus Additional Family Medical History / Comment(s): [place] Medications and Allergies Home Medications Medication Instructions Recorded Confirmed Type Aspirin EC [Ecotrin Low Dose] 81 mg PO PC-LUNCH 02/07/25 02/07/25 History Cholecalciferol [Vitamin D3 (25 25 mcg PO PC-LUNCH 02/07/25 02/07/25 History Mcg = 1000 Iu)] Vitamin B-12(Unknown Dose) 1 tab PO PC-LUNCH 02/07/25 02/07/25 History Allergies Allergy/AdvReac Type Severity Reaction Status Date / Time wheat Allergy Severe Swelling Verified 02/07/25 07:02 gluten AdvReac Intermediate Nausea & Verified 02/07/25 07:02 Vomiting & Swelling Physical Exam Vitals: Vital Signs Temp Pulse Pulse Resp BP BP Pulse Ox 02/07/25 12:15 60 17 114/79 95 02/07/25 10:46 78 16 125/89 95 02/07/25 06:31 97.9 F 71 20 118/78 96 02/07/25 04:00 98.6 F 77 16 125/70 02/06/25 22:59 71 17 127/87 97 02/06/25 21:23 97.4 F L 87 18 120/79 97 Intake and Output 02/06/25 02/07/25 02/07/25 22:59 06:59 14:59 Intake Total 82.624 Balance 82.624 Intake: Intake, IV Titration 82.624 Amount Heparin Sod,Pork in 0.45% 82.624 NaCl 25,000 unit In 0.45 % NaCl 1 250ml.bag @ 11.5 UNITS/KG/HR 10.015 mls/ hr IV .Q[facility]H [facility] Rx#: [id number] Other: Voiding Method Toilet Weight 87.09 kg Results CBC & Chem 7: 02/07/25 06:28 02/06/25 21:33 Labs: Abnormal Lab Results - Last 24 Hours (Table) 02/06/25 02/06/25 02/06/25 Range/Units 21:33 21:33 21:33 WBC 11.18 H (4.50-10.00) 10*3/uL Eosinophils # 0.42 H (0.04-0.35) 10*3/uL APTT (22.0-30.0) sec BUN 28 H (9-20) mg/dL Creatinine 1.34 H (0.66-1.25) mg/dL Glucose 135 H (74-99) mg/dL Troponin I 0.254 H* (0.000-0.034) ng/mL Cholesterol (0.00-200.00) mg/dL LDL Cholesterol, Calc (0.0-131.0) mg/dL 02/06/25 02/07/25 02/07/25 Range/Units 22:52 02:21 06:28 WBC (4.50-10.00) 10*3/uL Eosinophils # (0.04-0.35) 10*3/uL APTT 38.9 H (22.0-30.0) sec BUN (9-20) mg/dL Creatinine (0.66-1.25) mg/dL Glucose (74-99) mg/dL Troponin I 0.368 H* 0.747 H* (0.000-0.034) ng/mL Cholesterol (0.00-200.00) mg/dL LDL Cholesterol, Calc (0.0-131.0) mg/dL 02/07/25 02/07/25 Range/Units 06:28 10:53 WBC (4.50-10.00) 10*3/uL Eosinophils # (0.04-0.35) 10*3/uL APTT 57.5 H (22.0-30.0) sec BUN (9-20) mg/dL Creatinine (0.66-1.25) mg/dL Glucose (74-99) mg/dL Troponin I (0.000-0.034) ng/mL Cholesterol 203.00 H (0.00-200.00) mg/dL LDL Cholesterol, Calc 138.2 H (0.0-131.0) mg/dL Assessment and Plan Time with Patient: Less than 30
[2025-02-08] MEDS: MORPHINE SULFATE 4 MG/ML SYRINGE IV PRN (06:05)
[2025-02-08] MEDS: NITROGLYCERIN SL TABS 0.4 MG TAB SUBLINGUAL PRN (06:09)
[2025-02-08] MEDS ORDERED: HEPARIN SODIUM,PORCINE 10,000 UNIT in SODIUM CHLORIDE 0.9% 1,000 ML IRRIGATION PRN (07:00)
[2025-02-08] MEDS ORDERED: HEPARIN SODIUM,PORCINE (1 ML) 2,500 UNIT in SODIUM CHLORIDE 0.9% 250 ML IRRIGATION PRN (07:00)
[2025-02-08 07:23] LABS: Basophils # (A) 0.08 10*3/uL (0.00-0.10); Basophils % (A) 0.8 %; Eosinophils # (A) 0.34 10*3/uL (0.04-0.35); Eosinophils % (A) 3.5 %; HCT 43.8 % (39.6-50.0); HGB 14.4 g/dL (13.0-17.0); Lymphocytes # (A) 3.92 10*3/uL (0.90-5.00); Lymphocytes % (A) 39.9 %; MCH 30.6 pg (27.0-32.0); MCHC 32.9 g/dL (32.0-37.0); MCV 93.2 fL (80.0-97.0); Mean Platelet Volume 11.9 fL (9.5-12.2); Monocytes % (A) 8.1 %; Neutrophils # (A) 4.65 10*3/uL (1.80-7.70); Neutrophils % (A) 47.4 %; Platelet Count 213 10*3/uL (140-440); RDW 13.2 % (11.5-14.5); WBC 9.82 10*3/uL (4.50-10.00)
[2025-02-08 07:38] LABS: African American GFR (CKD) 64 (>60 ml/min/1.73 sqM); Anion Gap 9 mmol/L; Blood Urea Nitrogen 25 mg/dL (9-20); Carbon Dioxide 21 mmol/L (22-30); Chloride 109 mmol/L (98-107); Glucose 89 mg/dL (74-99); Non-African American GFR(CKD) 55 (>60 ml/min/1.73 sqM); Potassium 3.9 mmol/L (3.5-5.1); Sodium 139 mmol/L (137-145)
[2025-02-08] MEDS: EZETIMIBE 10 MG TAB PO SCH (08:03)
--- NOTE | 2025-02-08 09:37 | P.PN ---
Subjective Progress Note Date: 02/08/25 Reason for Consult (text): NSTEMI History of present illness: This is a 75-year-old male patient previously seen by with past medical history of coronary artery disease status post prior stenting of the LAD and RCA, ischemic cardiomyopathy, hypertension, dyslipidemia, intolerance to statins, throat cancer in remission. Patient was last evaluated on a telehealth visit 05/13/2020. He has not been following with any other project archivist. We have been asked to evaluate the patient for NSTEMI. Patient gives history that he had a heart attack in 2001 and also heart attack in 2019. Patient states that he developed tightness in his chest around 9:00 last evening. He states yesterday he was very active but was also under a lot of stress yesterday. His pain was initially 2-3 went up to a #5 and by the time he got to the hospital it was down. He states the pain lasted for about 30 minutes and is completely gone now. He is a non-smoker. Good blood pressure 118/78, heart rate 71, pulse ox 96% on room air. Patient has been started on a heparin drip. Patient is seen today in the emergency center waiting for a bed on the cardiac stepdown unit. Dr. Contreras discussed with the patient recommendation for cardiac catheterization and patient would like to move forward with this. Patient is requesting to be done by Dr. Cruz as he knows him from the past. -EKG: Sinus rhythm, low voltage -Chest x-ray: No acute process. -Laboratory studies: Troponin 0.254, 0.368, 0.747. BUN 28 creatinine 1.34. WBC 11.1, hemoglobin 16.6. -Home cardiac medications: Aspirin 81 mg daily. - Cardiolite stress test performed in the office 10/10/2019 revealed excellent exercise capacity. Normal EKG response. Abnormal myocardial perfusion imaging with fixed defect of large size in the distal anterior, apical, inferior apical segments of the left ventricle and represents prior MS. No stress-induced ischemia. EF 46%. -Echocardiogram performed in the office on 10/04/2019 revealed EF 40 to 45% mild concentric hypertrophy. Aortic valve calcified. No regurgitation. Moderate mitral regurgitation. Mild tricuspid regurgitation. Moderate pulmonary regurgitation. -Cardiac catheterization performed 2018 revealed 100% mid RCA, 70% distal RCA, patent stent in the proximal LAD and underwent PCI with stent to the mid RCA and stent to the distal RCA 02/08 Patient seen and examined on the cardiac stepdown unit. Echocardiogram reveals EF of 20 to 25%, apical hypokinesia with evidence of apical thrombus. Mild mitral regurgitation, mild tricuspid regurgitation, mild aortic regurgitation. Patient is scheduled for cardiac catheterization today with Dr. Cruz. Patient did have episode of chest pain for which he received nitroglycerin and morphine and had a drop in his blood pressure to 60/30 which recovered to 150/84, heart rate is in the 60s, pulse ox 97% on 2 L nasal cannula. Physical examination: Gen: This is 75-year-old male in no acute distress VS: reviewed HEENT: Head is atraumatic, normocephalic. Pupils equal, round. Sclerae is anicte leandra. NECK: Supple. No JVD. LUNGS: Clear to auscultation. No wheezes or rhonchi. No intercostal re tractions. HEART: Regular rate and rhythm. No murmur. ABDOMEN: Soft No tenderness. EXTREMITIES: No pedal edema. No calf tenderness. NEUROLOGICAL: Patient is awake, alert and oriented x3. Assessment: NSTEMI History of coronary artery disease with previous stenting to the mid RCA and distal RCA in 2019 Ischemic cardiomyopathy with previous EF 40 to 45% with drop to 20 to 25% Hypertension Dyslipidemia History of throat cancer Plan: Continue patient on aspirin 81 mg daily, atorvastatin, Lopressor Continue heparin drip Schedule patient for cardiac catheterization today with Dr. Cruz Further recommendations to follow based upon clinical course Nurse practitioner note has been reviewed, I agree with documented findings and plan of care. Patient was seen and examined. Objective - Vital Signs Vital signs: Vital Signs Temp 97.9 F 02/08/25 04:00 Pulse 73 02/08/25 07:01 Resp 16 02/08/25 07:01 BP 150/84 02/08/25 07:01 Pulse Ox 98 02/08/25 07:01 FiO2 Intake & Output 02/07/25 02/08/25 02/08/25 18:59 06:59 18:59 Intake Total 290.173 860.387 Balance 290.173 860.387 Weight 87.09 kg 84.7 kg Intake: IV 792 Heparin Sod,Pork in 0.45% 192 NaCl 25,000 unit In 0.45 % NaCl 1 250ml.bag @ 11.5 UNITS/KG/HR 10.015 mls/ hr IV .Q24H [facility] Rx#: [id number] Sodium Chloride 0.9% 1, 600 000 ml @ 75 mls/hr IV . [id number] [facility] Rx#:[id number] Intake, IV Titration 172.173 68.387 Amount Heparin Sod,Pork in 0.45% 172.173 68.387 NaCl 25,000 unit In 0.45 % NaCl 1 250ml.bag @ 11.5 UNITS/KG/HR 10.015 mls/ hr IV .Q24H [facility] Rx#: [id number] Oral 118 Other: Voiding Method Toilet Toilet - Labs CBC & Chem 7: 02/08/25 06:20 02/08/25 06:20 Labs: Abnormal Lab Results - Last 24 Hours (Table) 02/07/25 02/07/25 Range/Units 06:28 10:53 APTT 57.5 H (22.0-30.0) sec Cholesterol 203.00 H (0.00-200.00) mg/dL LDL Cholesterol, Calc 138.2 H (0.0-131.0) mg/dL
[2025-02-08] MEDS: IV FLUID CONTINUATION 400 ML IV ONE (12:11)
[2025-02-08] MEDS: MIDAZOLAM 2 MG/2 ML VIAL IVP ONE (12:24)
[2025-02-08] MEDS: SODIUM CHLORIDE 0.9% 1,000 ML IV ONE (12:27)
[2025-02-08] MEDS: LIDOCAINE 1% INJ 10MG/ML (20 ML MDV) SQ ONE (12:34)
[2025-02-08] MEDS: HEPARIN SODIUM 1,000 UN/ML (10ML VL) IVP ONE (12:35)
[2025-02-08] MEDS: VERAPAMIL SYRINGE (5 MG/10 ML) INTRAARTER ONE (12:35)
[2025-02-08] MEDS: IOPAMIDOL-370 100ML BTL INJ ONE ×2 (13:08→13:31)
[2025-02-08] MEDS: TICAGRELOR 90 MG TAB PO ONE (13:21)
[2025-02-08] MEDS: niCARdipine Syringe (1,000 mcg/10 mL) INTRACORON ONE (13:26)
[2025-02-08] MEDS: NITROGLYCERIN 1000MCG/10ML SYRINGE INTRACORON ONE (13:26)
[2025-02-08] MEDS ORDERED: ATROPINE SULFATE 0.1 MG/ML 10ML SYRINGE IV PRN (13:31)
[2025-02-08] MEDS ORDERED: NITROGLYCERIN SL TABS 0.4 MG TAB SUBLINGUAL PRN (13:31)
[2025-02-08] MEDS ORDERED: MAG HYDROX/AL HYDROX/SIMETH 30 ML CUP PO PRN (13:31)
[2025-02-08] MEDS ORDERED: RX INFO: IV CONTRAST WAS GIVEN 1 EACH MISC MISCELLANE PRN (13:31)
[2025-02-08] MEDS ORDERED: ZOLPIDEM 5 MG TAB PO PRN (13:31)
--- NOTE | 2025-02-08 13:36 | P.PCN ---
Date of Procedure: 02/08/25 Operative Findings: CARDIAC CATHETERIZATION AND PERCUTANEOUS CORONARY INTERVENTION PERFORMING PHYSICIAN: Bart Cruz MD, [facility] [place] PROCEDURE PERFORMED: 1. Selective right and left coronary angiogram 2. Successful stenting of OM 2 using 3.25 x 18 mm Xience CLYDE with an excellent angiographic results 3. Adjunctive use of IVUS and IFR 4. Ultrasound-guided access of the right radial artery INDICATION: Acute non-ST ovation myocardial infarction COMPLICATION: None APPROACH: Right radial artery LEVEL OF SEDATION: Moderate with the sedation time off 55 minutes PROCEDURE DESCRIPTION: After obtaining informed consent the patient was brought to the cardiac [facility] [facility]. The right radial artery was cannulated using micropuncture technique under ultrasound guidance a micropuncture wire passed easily then I placed a 6 Amharic 11 cm sheath at the right radial artery. 2 mg of verapamil intra-arterial given and heparin was given intravenous with continuous ACT monitoring. Selective right and left coronary angiogram performed using JR4 and JL 3.5 catheters. Left heart catheterization was not performed because the patient was noted to have LV thrombus. After that we decided to do an IFR of the RCA. After zeroing the Dobler wire and equalized in between the Dobler wire and guiding catheter the RCA was engaged and subsequently wired with IFR came to be at 0.92 which was nonischemic. Subsequently I engaged the left coronary system/left main using EBU 3.5 guiding catheter. Subsequently I did wired OM1 using a whisper wire and I wired the AV groove circumflex using a run-through wire. IVUS was performed and showed a diameter around 3.25 mm. I did predilated using 2 mm balloon before I deployed 3.25 x 18 mm stent which was postdilated using 3.5 mm NC balloon with final angiogram showing excellent angiographic results and the procedure was completed with no complication SELECTIVE CORONARY ANGIOGRAM: The right coronary artery: Large caliber vessel with patent stent in the midportion and intermediate lesion involving distal portion documented to be negative by IFR Left main: Is angiographically normal The left circumflex: Has mild to moderate disease proximally with occluded second obtuse marginal branch The left anterior descending artery: Diffusely disease from the proximal portion all the way to the distal portion with disease up to about 80 to 90% CONCLUSION: 1. Patent stent in the mid RCA with intermediate lesion involving the distal RCA documented to be nonflow-limiting by Doppler wire 2. Occluded second obtuse marginal branch of the left circumflex. I did perform successful PCI as described above 3. Severe diffuse disease involving the LAD not a good candidate for either PCI or CABG POSTPROCEDURE MANAGEMENT: 1. Dual antiplatelet therapy using aspirin and Brilinta for 12 month 2. Aggressive cholesterol control 3. Follow-up with the patient
[2025-02-08] MEDS: SODIUM CHLORIDE 0.9% 1,000 ML in EMPTY BAG 1 BAG IV SCH (17:02)
[2025-02-08] MEDS: TICAGRELOR 90 MG TAB PO SCH (19:35)
--- NOTE | 2025-02-09 08:01 | P.PN ---
Subjective Progress Note Date: 02/08/25 This is a pleasant 75 year old male with medical history of [place] with stenting in 2000 and 2019, hypertension, hyperlipidemia. Patient came in to the hospital with complaints of chest pain which was over the right chest wall and began at 9pm yesterday evening. He had no associated symptoms, denied palpitations, dizziness lightheadedness, or shortness of breath. No recent illness, no fever or chills noted. He states he had went grocery shopping and cut his grass states he had been moving about all day and then noted the onset of the chest pain. He pain dulled on the way to the hospital and upon arrival the chest pain had completely subsided. The pain had lasted 30 minutes. Chest xray on admission reveals no acute pulmonary process. Initial EKG reveals normal sinus rhythm heart rate of 79. BUN of 28, creatinine of 1.34. Troponin was elevated at 0.254, 0.368 and 0.747. He was started on IV heparin and admitted to the hospital with cardiology consultation. 02/08/2025 Patient seen and evaluated in follow-up status postcardiac catheterization with Dr. Cruz revealing patent stent in the mid RCA with an intermediate lesion involving the distal RCA documented to be nonflow limiting by Doppler, occluded obtuse marginal branch of the left circumflex with successful PCI and severe diffuse disease involving the LAD of which is not a good candidate for either PCI or CABG. Cardiology recommending dual antiplatelet therapy using aspirin and Brilinta for minimum 12 months. Patient will be continued on telemetry monitoring with cardiology following and recommends at least 24-hour monitoring at this time. Encouraged sitting up and walking more frequently once cleared per cardiac catheterization protocol. Continuing to undergo TBan removal at this time. Right radial T-ban with pressure noted and no active bleeding. Patient is afebrile with no reports of chest pain, shortness of breath, or palpitations. Review of systems: Constitutional: No reports of fatigue, fever, or chills Cardiovascular: No reports of chest pain or palpitations Respiratory: No reports of shortness of breath or cough GI: No reports of nausea, vomiting, or diarrhea : No reports of dysuria or retention Neurovascular: No reports of weakness or numbness All medications have been reviewed PHYSICAL EXAMINATION: GENERAL: The patient is alert and oriented x3, not in any acute distress. Well developed, well nourished. Elderly appearing HEENT: Pupils are round and equally reacting to light. EOMI. No scleral icterus. No conjunctival pallor. Normocephalic, atraumatic. No pharyngeal erythema. No thyromegaly. CARDIOVASCULAR: S1 and S2 muffled PULMONARY: Diminished breath sounds bilaterally otherwise chest is clear to auscultation, no wheezing or crackles. ABDOMEN: Soft, nontender, nondistended, normoactive bowel sounds. No palpable organomegaly. MUSCULOSKELETAL: No joint swelling or deformity. EXTREMITIES: No cyanosis, clubbing, or pedal edema. NEUROLOGICAL: Gross neurological examination did not reveal any focal deficits. SKIN: No rashes. Assessment: Acute NSTEMI with troponin elevation, status post cardiac catheterization with successful PCI to the left circumflex Chest pain secondary to above, improved Mild renal injury, prerenal azotemia; dehydrational, improving Hx of coronary artery disease with prior PCI Ischemic cardiomyopathy with previous EF 40 to 45%, repeat showing a drop to 20 to 25% EF Hypertension Hyperlipidemia Hx of throat cancer in remission Former smoker GI prophylaxis Plan: Continue IV heparin status post cardiac catheterization as with successful PCI stenting to the circumflex Continue cardiac telemetry, maximize medical therapy and follow-up with cardio logy regarding possible discharge planning in the next 24 to 48 hours Continue normal saline and monitor renal function, repeat labs in a.m. Repeat 2D echocardiogram reveals a drop in EF to 20 to 25% and was originally 40-45 Home and occasions resumed as appropriate Encouraged increased activity as tolerated once cardiac catheterization protocol is complete will discuss further with cardiology regarding discharge planning The impression and plan of care has been dictated by Sherrie Lovett, Nurse Practitioner as directed. Dr. Jose Armando MD I have performed a history and physical examination and medical decision making of this patient, discussed the same with the dictator, and agree with the dictators assessment and plan as written, documented as a scribe. Based on total visit time, I have performed more than 50% of this visit. Objective - Vital Signs Vital signs: Vital Signs Temp 97.9 F 02/08/25 04:00 Pulse 77 02/08/25 08:00 Resp 16 02/08/25 08:00 BP 118/70 02/08/25 08:00 Pulse Ox 97 02/08/25 08:00 FiO2 Intake & Output 02/07/25 02/08/25 02/08/25 18:59 06:59 18:59 Intake Total 290.173 860.387 100 Balance 290.173 860.387 100 Weight 87.09 kg 84.7 kg Intake: IV 792 100 Heparin Sod,Pork in 0.45% 192 NaCl 25,000 unit In 0.45 % NaCl 1 250ml.bag @ 11.5 UNITS/KG/HR 10.015 mls/ hr IV .Q24H [facility] Rx#: [id number] Sodium Chloride 0.9% 1, 600 000 ml @ 75 mls/hr IV . [id number] [facility] Rx#:[id number] Intake, IV Titration 172.173 68.387 Amount Heparin Sod,Pork in 0.45% 172.173 68.387 NaCl 25,000 unit In 0.45 % NaCl 1 250ml.bag @ 11.5 UNITS/KG/HR 10.015 mls/ hr IV .Q24H [facility] Rx#: [id number] Oral 118 Other: Voiding Method Toilet Toilet - Labs CBC & Chem 7: 02/08/25 06:20 02/08/25 06:20 Labs: Abnormal Lab Results - Last 24 Hours (Table) 02/08/25 02/08/25 02/08/25 Range/Units 06:20 06:20 06:20 APTT 45.0 H (22.0-30.0) sec Chloride 109 H (98-107) mmol/L Carbon Dioxide 21 L (22-30) mmol/L BUN 25 H (9-20) mg/dL Creatinine 1.27 H (0.66-1.25) mg/dL Troponin I 0.520 H* (0.000-0.034) ng/mL
[2025-02-09 09:07] LABS: Mean Platelet Volume 11.4 fL (9.5-12.2); Platelet Count 226 10*3/uL (140-440)
[2025-02-09 09:25] LABS: African American GFR (CKD) 69 (>60 ml/min/1.73 sqM); Anion Gap 9 mmol/L; Blood Urea Nitrogen 16 mg/dL (9-20); Calcium 9.3 mg/dL (8.4-10.2); Carbon Dioxide 23 mmol/L (22-30); Chloride 108 mmol/L (98-107); Glucose 90 mg/dL (74-99); Magnesium 1.8 mg/dL (1.6-2.3); Non-African American GFR(CKD) 60 (>60 ml/min/1.73 sqM); Potassium 4.2 mmol/L (3.5-5.1); Sodium 140 mmol/L (137-145)
[2025-02-09 13:02] VITALS: BMI 26.8
[2025-02-09] MEDS: SPIRONOLACTONE 25 MG TAB PO SCH (18:02)
[2025-02-09] MEDS: DAPAGLIFLOZIN PROPANEDIOL 10 MG TABLET PO SCH (18:02)
--- NOTE | 2025-02-09 18:57 | P.PN ---
Subjective Progress Note Date: 02/09/25 This is a 75-year-old male patient previously seen by with past medical history of coronary artery disease status post prior stenting of the LAD and RCA, ischemic cardiomyopathy, hypertension, dyslipidemia, intolerance to statins, throat cancer in remission. Patient was last evaluated on a telehealth visit 05/13/2020. 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 We have been asked to evaluate the patient for NSTEMI. Patient gives history that he had a heart attack in 2001 and also heart attack in 2019. Patient states that he developed tightness in his chest around 9:00 last evening. He states yesterday he was very active but was also under a lot of stress yesterday. His pain was initially 2-3 went up to a #5 and by the time he got to the hospital it was down. He states the pain lasted for about 30 minutes and is completely gone now. He is a non-smoker. Good blood pressure 118/78, heart rate 71, pulse ox 96% on room air. Patient has been started on a heparin drip. Patient is seen today in the emergency center waiting for a bed on the cardiac stepdown unit. Dr. Contreras discussed with the patient recommendation for cardiac catheterization and patient would like to move forward with this. Patient is requesting to be done by Dr. Cruz as he knows him from the past. -EKG: Sinus rhythm, low voltage -Chest x-ray: No acute process. -Laboratory studies: Troponin 0.254, 0.368, 0.747. BUN 28 creatinine 1.34. WBC 11.1, hemoglobin 16.6. -Home cardiac medications: Aspirin 81 mg daily. - Cardiolite stress test performed in the office 10/10/2019 revealed excellent e xercise capacity. Normal EKG response. Abnormal myocardial perfusion imaging with fixed defect of large size in the distal anterior, apical, inferior apical segments of the left ventricle and represents prior CT. No stress-induced ischemia. EF 46%. -Echocardiogram performed in the office on 10/04/2019 revealed EF 40 to 45% mild concentric hypertrophy. Aortic valve calcified. No regurgitation. Moderate mitral regurgitation. Mild tricuspid regurgitation. Moderate pulmonary regurgitation. -Cardiac catheterization performed 2018 revealed 100% mid RCA, 70% distal RCA, patent stent in the proximal LAD and underwent PCI with stent to the mid RCA and stent to the distal RCA 02/09/2025 Patient underwent PCI with Dr. Pimentel yesterday. Underwent PCI of OM 2. Echo showed severe cardiomyopathy which is worsened with a EF of 20 to 25% with apical hypokinesia and apical thrombus Physical examination: HEENT: Head is atraumatic, normocephalic. Pupils equal, round. Sclerae is anicteric. NECK: Supple. No JVD. LUNGS: Clear to auscultation. No wheezes or rhonchi. No intercostal retractions. HEART: Regular rate and rhythm. No murmur. ABDOMEN: Soft No tenderness. EXTREMITIES: No pedal edema. No calf tenderness. NEUROLOGICAL: Patient is awake, alert and oriented x3. Assessment: NSTEMI History of coronary artery disease with previous stenting to the mid RCA and distal RCA in 2019 Ischemic cardiomyopathy with previous EF 40 to 45% --> worsened to 20 to 25%, euvolemic, LV apical thrombus Hypertension Dyslipidemia History of throat cancer Plan: Optimize GDMT Discontinue IV heparin drip. Start Eliquis. Continue dual antiplatelet therapy. Continue triple therapy for 1 month and thereafter drop aspirin. After 3 months consider repeating echocardiogram and if no LV thrombus, consider dropping Eliquis, and reinitiating DAPT therapy. Monitor blood pressure and kidney function electrolytes tomorrow If normal consider discharging. LifeVest Objective - Vital Signs Vital signs: Vital Signs Temp 98.3 F 02/09/25 03:25 Pulse 82 02/09/25 18:04 Resp 16 02/09/25 18:04 BP 139/87 02/09/25 18:04 Pulse Ox 96 02/09/25 18:04 FiO2 Intake & Output 02/08/25 02/09/25 02/09/25 18:59 06:59 18:59 Intake Total 468 480 240 Balance 468 480 240 Weight 84.8 kg 84.8 kg Intake: IV 100 Oral 368 480 240 Other: Voiding Method Toilet Toilet # Voids 1 3 - Labs CBC & Chem 7: 02/09/25 07:51 02/09/25 07:51 Labs: Abnormal Lab Results - Last 24 Hours (Table) 02/09/25 Range/Units 07:51 Chloride 108 H (98-107) mmol/L
[2025-02-09] MEDS: ATORVASTATIN 40 MG TAB PO SCH (20:10)
[2025-02-09] MEDS: SACUBITRIL/VALSARTAN 24 MG-26 MG TABLET PO SCH (20:10)
[2025-02-09] MEDS: APIXABAN 5 MG TAB PO SCH (20:10)
[2025-02-10 06:04] VITALS: RESP 16
--- NOTE | 2025-02-10 07:21 | P.PN ---
Subjective Progress Note Date: 02/09/25 This is a pleasant 75 year old male with medical history of [place] with stenting in 2000 and 2019, hypertension, hyperlipidemia. Patient came in to the hospital with complaints of chest pain which was over the right chest wall and began at 9pm yesterday evening. He had no associated symptoms, denied palpitations, dizziness lightheadedness, or shortness of breath. No recent illness, no fever or chills noted. He states he had went grocery shopping and cut his grass states he had been moving about all day and then noted the onset of the chest pain. He pain dulled on the way to the hospital and upon arrival the chest pain had completely subsided. The pain had lasted 30 minutes. Chest xray on admission reveals no acute pulmonary process. Initial EKG reveals normal sinus rhythm heart rate of 79. BUN of 28, creatinine of 1.34. Troponin was elevated at 0.254, 0.368 and 0.747. He was started on IV heparin and admitted to the hospital with cardiology consultation. 02/08/2025 Patient seen and evaluated in follow-up status postcardiac catheterization with Dr. Cruz revealing patent stent in the mid RCA with an intermediate lesion involving the distal RCA documented to be nonflow limiting by Doppler, occluded obtuse marginal branch of the left circumflex with successful PCI and severe diffuse disease involving the LAD of which is not a good candidate for either PCI or CABG. Cardiology recommending dual antiplatelet therapy using aspirin and Brilinta for minimum 12 months. Patient will be continued on telemetry monitoring with cardiology following and recommends at least 24-hour monitoring at this time. Encouraged sitting up and walking more frequently once cleared per cardiac catheterization protocol. Continuing to undergo TBan removal at this time. Right radial T-ban with pressure noted and no active bleeding. Patient is afebrile with no reports of chest pain, shortness of breath, or palpitations. 02/09/2025 Patient is seen in follow-up today awaiting cardiology evaluation as patient reports he feels much improved and would like to go home. Not sure cardiology's full plan and discussing possibly LifeVest and will await cardiology reevaluation and input and recommendations regarding discharge planning. Multiple medications being adjusted to maximize medical therapy and would recommend monitoring closely as patient's EF has also decreased significantly. Encouraged increase activity as tolerated and will continue current regimen while awaiting cardiology evaluation. Patient is afebrile with no reported chest pain or shortness of breath. Patient reports to tolerating diet with no reported nausea or vomiting. Review of systems: Constitutional: No reports of fatigue, fever, or chills Cardiovascular: No reports of chest pain or palpitations Respiratory: No reports of shortness of breath or cough GI: No reports of nausea, vomiting, or diarrhea : No reports of dysuria or retention Neurovascular: No reports of weakness or numbness All medications have been reviewed PHYSICAL EXAMINATION: GENERAL: The patient is alert and oriented x3, not in any acute distress. Well developed, well nourished. Elderly appearing HEENT: Pupils are round and equally reacting to light. EOMI. No scleral icterus. No conjunctival pallor. Normocephalic, atraumatic. No pharyngeal erythema. No thyromegaly. CARDIOVASCULAR: S1 and S2 muffled PULMONARY: Diminished breath sounds bilaterally otherwise chest is clear to auscultation, no wheezing or crackles. ABDOMEN: Soft, nontender, nondistended, normoactive bowel sounds. No palpable organomegaly. MUSCULOSKELETAL: No joint swelling or deformity. EXTREMITIES: No cyanosis, clubbing, or pedal edema. NEUROLOGICAL: Gross neurological examination did not reveal any focal deficits. SKIN: No rashes. Assessment: Acute NSTEMI with troponin elevation, status post cardiac catheterization with successful PCI to the left circumflex Chest pain secondary to above, improved Mild renal injury, prerenal azotemia; dehydrational, improving Hx of coronary artery disease with prior PCI Ischemic cardiomyopathy with previous EF 40 to 45%, repeat showing a drop to 20 to 25% EF Hypertension Hyperlipidemia Hx of throat cancer in remission Former smoker GI prophylaxis Plan: Continue IV heparin while awaiting cardiology recommendations and will likely transition to oral anticoagulant on discharge status post cardiac catheterization as with successful PCI stenting to the circumflex Continue cardiac telemetry, maximize medical therapy and follow-up with cardiology regarding possible discharge planning in the next 24 to 48 hours. Planning for possible LifeVest which will need to be arranged prior to discharge. Continue normal saline and monitor renal function, repeat labs in a.m. Repeat 2D echocardiogram reveals a drop in EF to 20 to 25% and was originally 40-45 Home medications resumed as appropriate Encouraged increased activity as tolerated and awaiting cardiology reevaluation. Patient really would like to go home but will be awaiting cardiology clearance. The impression and plan of care has been dictated as a scribe by Sherrie Lovett, Nurse Practitioner as directed. Dr. Jose Armando MD I have performed a history and physical examination and medical decision making of this patient, discussed the same with the dictator, and agree with the dictators assessment and plan as written, documented as a scribe. Based on total visit time, I have performed more than 50% of this visit. Objective - Vital Signs Vital signs: Vital Signs Temp 98.4 F 02/10/25 04:00 Pulse 80 02/10/25 04:00 Resp 16 02/10/25 04:00 BP 101/67 02/10/25 04:00 Pulse Ox 93 L 02/10/25 04:00 FiO2 Intake & Output 02/09/25 02/10/25 02/10/25 18:59 06:59 18:59 Intake Total 240 Balance 240 Weight 84.8 kg 83.5 kg Intake: Oral 240 Other: Voiding Method Toilet Toilet # Voids 3 - Labs CBC & Chem 7: 02/09/25 07:51 02/09/25 07:51 Labs: Abnormal Lab Results - Last 24 Hours (Table) 02/09/25 Range/Units 07:51 Chloride 108 H (98-107) mmol/L
[2025-02-10 09:30] LABS: Anion Gap 10 mmol/L; Blood Urea Nitrogen 17 mg/dL (9-20); Carbon Dioxide 24 mmol/L (22-30); Chloride 107 mmol/L (98-107); Glucose 104 mg/dL (74-99); Potassium 3.9 mmol/L (3.5-5.1); Sodium 141 mmol/L (137-145)
[2025-02-10 09:31] LABS: ALT 16 U/L (4-49); AST 36 U/L (17-59); African American GFR (CKD) 54 (>60 ml/min/1.73 sqM); Alkaline Phosphatase 64 U/L (38-126); Calcium 9.7 mg/dL (8.4-10.2); Magnesium 1.9 mg/dL (1.6-2.3); Non-African American GFR(CKD) 47 (>60 ml/min/1.73 sqM); Total Bilirubin 0.8 mg/dL (0.2-1.3); Total Protein 6.3 g/dL (6.3-8.2)
[2025-02-10 09:36] LABS: NT-Pro-B-Type Natriuretic Pept 3500 pg/mL
--- NOTE | 2025-02-10 09:57 | P.PN ---
Subjective Progress Note Date: 02/10/25 This is a 75-year-old male patient previously seen by with past medical history of coronary artery disease status post prior stenting of the LAD and RCA, ischemic cardiomyopathy, hypertension, dyslipidemia, intolerance to statins, throat cancer in remission. Patient was last evaluated on a telehealth visit 05/13/2020. 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 We have been asked to evaluate the patient for NSTEMI. Patient gives history that he had a heart attack in 2001 and also heart attack in 2019. Patient states that he developed tightness in his chest around 9:00 last evening. He states yesterday he was very active but was also under a lot of stress yesterday. His pain was initially 2-3 went up to a #5 and by the time he got to the hospital it was down. He states the pain lasted for about 30 minutes and is completely gone now. He is a non-smoker. Good blood pressure 118/78, heart rate 71, pulse ox 96% on room air. Patient has been started on a heparin drip. Patient is seen today in the emergency center waiting for a bed on the cardiac stepdown unit. Dr. Contreras discussed with the patient recommendation for cardiac catheterization and patient would like to move forward with this. Patient is requesting to be done by Dr. Cruz as he knows him from the past. -EKG: Sinus rhythm, low voltage -Chest x-ray: No acute process. -Laboratory studies: Troponin 0.254, 0.368, 0.747. BUN 28 creatinine 1.34. WBC 11.1, hemoglobin 16.6. -Home cardiac medications: Aspirin 81 mg daily. - Cardiolite stress test performed in the office 10/10/2019 revealed excellent e xercise capacity. Normal EKG response. Abnormal myocardial perfusion imaging with fixed defect of large size in the distal anterior, apical, inferior apical segments of the left ventricle and represents prior [place]. No stress-induced ischemia. EF 46%. -Echocardiogram performed in the office on 10/04/2019 revealed EF 40 to 45% mild concentric hypertrophy. Aortic valve calcified. No regurgitation. Moderate mitral regurgitation. Mild tricuspid regurgitation. Moderate pulmonary regurgitation. -Cardiac catheterization performed 2018 revealed 100% mid RCA, 70% distal RCA, patent stent in the proximal LAD and underwent PCI with stent to the mid RCA and stent to the distal RCA 02/09/2025 Patient underwent PCI with Dr. Pimentel yesterday. Underwent PCI of OM 2. Echo showed severe cardiomyopathy which is worsened with a EF of 20 to 25% with apical hypokinesia and apical thrombus 02/10/2025 Kidney function and electrolytes are within normal limit with addition of GDMT. He is tolerating these medications well. Blood pressure is borderline low today. He was started on Entresto yesterday. Will cut the dose to half. No arrhythmias or major NSVT's on telemetry. Average heart rate around 70s Physical examination: HEENT: Head is atraumatic, normocephalic. Pupils equal, round. Sclerae is a nicteric. NECK: Supple. No JVD. LUNGS: Clear to auscultation. No wheezes or rhonchi. No intercostal retractions. HEART: Regular rate and rhythm. No murmur. ABDOMEN: Soft No tenderness. EXTREMITIES: No pedal edema. No calf tenderness. NEUROLOGICAL: Patient is awake, alert and oriented x3. Assessment: NSTEMI History of coronary artery disease with previous stenting to the mid RCA and distal RCA in 2019 Ischemic cardiomyopathy with previous EF 40 to 45% --> worsened to 20 to 25%, euvolemic, LV apical thrombus Hypertension Dyslipidemia History of throat cancer Plan: Discontinue IV heparin drip. Start Eliquis. Continue dual antiplatelet therapy with Brilinta. Continue triple therapy for 1 month and thereafter drop aspirin. After 3 months consider repeating echocardiogram and if no LV thrombus, consider dropping Eliquis, and reinitiating DAPT therapy. Lipitor 40, Zetia 10 Farxiga 10 Aldactone 12.5, Because of low borderline blood pressure, reduce Entresto to half tablet 24/26 mg twice daily Recommend LifeVest. It can be set it up at home Okay to be discharged from cardiovascular standpoint if orthostatic vital signs are normal. Follow-up outpatient Objective - Vital Signs Vital signs: Vital Signs Temp 97.6 F 02/10/25 07:41 Pulse 77 02/10/25 07:41 Resp 16 02/10/25 07:41 BP 101/66 02/10/25 07:41 Pulse Ox 96 02/10/25 07:41 FiO2 Intake & Output 02/09/25 02/10/25 02/10/25 18:59 06:59 18:59 Intake Total 240 120 Balance 240 120 Weight 84.8 kg 83.5 kg Intake: Oral 240 120 Other: Voiding Method Toilet Toilet # Voids 3 - Labs CBC & Chem 7: 02/09/25 07:51 02/10/25 08:06 Labs: Abnormal Lab Results - Last 24 Hours (Table) 02/10/25 Range/Units 08:06 Creatinine 1.45 H (0.66-1.25) mg/dL Glucose 104 H (74-99) mg/dL
[2025-02-10 11:36] VITALS: TEMP 97.5
[2025-02-10 12:41] VITALS: BP 102/67; PULSE 65
[2025-02-10] MEDS ORDERED: SACUBITRIL/VALSARTAN 24 MG-26 MG TABLET PO SCH (21:00)
--- NOTE | 2025-02-10 22:50 | P.DS ---
Providers Date of admission: 02/06/25 22:45 Expected date of discharge: 02/10/25 Attending physician: Miguel Mcneill Consults: 02/06/25 22:45 Consult Physician Routine Consulting Provider: Bart Cruz Consult Reason/Comments: NSTEMI Do you want consulting provider notified?: Yes 02/08/25 13:31 Consult Physician Routine Consulting Provider: [facility] Consult Reason/Comments: Post Interventional Patient Do you want consulting provider notified?: Already Contacted Primary care physician: Wes Sampson Hospital Course: Final diagnosis Acute NSTEMI with troponin elevation, status post cardiac catheterization with successful PCI to the left circumflex Chest pain secondary to above, improved Mild renal injury, prerenal azotemia; dehydrational, improving Hx of coronary artery disease with prior PCI Ischemic cardiomyopathy with previous EF 40 to 45%, repeat showing a drop to 20 to 25% EF, has been fitted for LifeVest on discharge Hypertension Hyperlipidemia Hx of throat cancer in remission Former smoker GI prophylaxis DVT prophylaxis, maintained on Eliquis Full code Discharge disposition Patient is being discharged in a stable condition with guarded prognosis to home. Patient will follow-up with Dr. Sampson in the outpatient setting upon discharge. Patient is to continue with current medications and close outpatient follow-up with cardiology as scheduled. Patient has been fitted and received a LifeVest on discharge. Total time taken is greater than 35 minutes. Hospital course This is a pleasant 75 year old male with medical history of MD with stenting in 2000 and 2018, hypertension, hyperlipidemia. Patient came in to the hospital with complaints of chest pain which was over the right chest wall and began at 9pm yesterday evening. He had no associated symptoms, denied palpitations, dizziness lightheadedness, or shortness of breath. No recent illness, no fever or chills noted. He states he had went grocery shopping and cut his grass states he had been moving about all day and then noted the onset of the chest pain. He pain dulled on the way to the hospital and upon arrival the chest pain had completely subsided. The pain had lasted 30 minutes. Chest xray on admission reveals no acute pulmonary process. Initial EKG reveals normal sinus rhythm heart rate of 79. BUN of 28, creatinine of 1.34. Troponin was elevated at 0.254, 0.368 and 0.747. He was started on IV heparin and admitted to the hospital with cardiology consultation. 02/08/2025 Patient seen and evaluated in follow-up status postcardiac catheterization with Dr. Cruz revealing patent stent in the mid RCA with an intermediate lesion involving the distal RCA documented to be nonflow limiting by Doppler, occluded obtuse marginal branch of the left circumflex with successful PCI and severe diffuse disease involving the LAD of which is not a good candidate for either PCI or CABG. Cardiology recommending dual antiplatelet therapy using aspirin and Brilinta for minimum 12 months. Patient will be continued on telemetry monitoring with cardiology following and recommends at least 24-hour monitoring at this time. Encouraged sitting up and walking more frequently once cleared per cardiac catheterization protocol. Continuing to undergo TBan removal at this time. Right radial T-ban with pressure noted and no active bleeding. Patient is afebrile with no reports of chest pain, shortness of breath, or palpitations. 02/09/2025 Patient is seen in follow-up today awaiting cardiology evaluation as patient reports he feels much improved and would like to go home. Not sure cardiology's full plan and discussing possibly LifeVest and will await cardiology reevaluation and input and recommendations regarding discharge planning. Multiple medications being adjusted to maximize medical therapy and would recommend monitoring closely as patient's EF has also decreased significantly. Encouraged increase activity as tolerated and will continue current regimen while awaiting cardiology evaluation. Patient is afebrile with no reported chest pain or shortness of breath. Patient reports to tolerating diet with no reported nausea or vomiting. 02/10/2025 Patient is seen in follow-up today has been fitted for a LifeVest and received and has been cleared by cardiology for outpatient follow-up. Prescription sent to pharmacy and encouraged patient to follow-up with primary care provider as well as cardiology. Patient reports to feeling well and would like to go home. Cardiology has cleared him today. Please refer to cardiology notes for further HPI. Currently no reports of chest pain, shortness of breath, palpitations. Patient has been tolerating diet with no reported nausea or vomiting. PHYSICAL EXAMINATION: GENERAL: The patient is alert and oriented x3, not in any acute distress. Well developed, well nourished. Elderly appearing HEENT: Pupils are round and equally reacting to light. EOMI. No scleral icterus. No conjunctival pallor. Normocephalic, atraumatic. No pharyngeal erythema. No thyromegaly. CARDIOVASCULAR: S1 and S2 muffled PULMONARY: Diminished breath sounds bilaterally otherwise chest is clear to auscultation, no wheezing or crackles. ABDOMEN: Soft, nontender, nondistended, normoactive bowel sounds. No palpable organomegaly. MUSCULOSKELETAL: No joint swelling or deformity. EXTREMITIES: No cyanosis, clubbing, or pedal edema. NEUROLOGICAL: Gross neurological examination did not reveal any focal deficits. SKIN: No rashes. Please refer to medication reconciliation sheet for a list of medications. The impression and plan of care has been dictated as a scribe by Sherrie Lovett, Nurse Practitioner as directed. Dr. Jose Armando MD I have performed a history and physical examination and medical decision making of this patient, discussed the same with the dictator, and agree with the dictators assessment and plan as written, documented as a scribe. Based on total visit time, I have performed more than 50% of this visit. Patient Condition at Discharge: Fair Plan - Discharge Summary Discharge Rx Participant: No New Discharge Prescriptions: New Sacubitril/Valsartan [Entresto 24 mg-26 mg Tablet] 0.5 each PO BID #60 tab Dapagliflozin Propanediol [Farxiga] 10 mg PO DAILY #30 tab Atorvastatin [Lipitor] 40 mg PO HS #30 tab Metoprolol Tartrate [Lopressor] 25 mg PO BID #60 tab Nitroglycerin Sl Tabs [Nitrostat] 0.4 mg SUBLINGUAL Q5M PRN #20 tab PRN Reason: Chest Pain Ezetimibe [Zetia] 10 mg PO DAILY #30 tab Spironolactone [Aldactone] 12.5 mg PO DAILY #30 tab Aspirin 81 mg PO DAILY #30 tab Ticagrelor [Brilinta] 90 mg PO BID #60 tab Apixaban [Eliquis] 5 mg PO BID #60 tab Continue Cholecalciferol [Vitamin D3 (25 Mcg = 1000 Iu)] 25 mcg PO PC-LUNCH Vitamin B-12(Unknown Dose) 1 tab PO PC-LUNCH Discontinued Aspirin EC [Ecotrin Low Dose] 81 mg PO PC-LUNCH Discharge Medication List Cholecalciferol [Vitamin D3 (25 Mcg = 1000 Iu)] 25 mcg PO PC-LUNCH 02/07/25 [History] Vitamin B-12(Unknown Dose) 1 tab PO PC-LUNCH 02/07/25 [History] Apixaban [Eliquis] 5 mg PO BID #60 tab 02/10/25 [Rx] Aspirin 81 mg PO DAILY #30 tab 02/10/25 [Rx] Atorvastatin [Lipitor] 40 mg PO HS #30 tab 02/10/25 [Rx] Dapagliflozin Propanediol [Farxiga] 10 mg PO DAILY #30 tab 02/10/25 [Rx] Ezetimibe [Zetia] 10 mg PO DAILY #30 tab 02/10/25 [Rx] Metoprolol Tartrate [Lopressor] 25 mg PO BID #60 tab 02/10/25 [Rx] Nitroglycerin Sl Tabs [Nitrostat] 0.4 mg SUBLINGUAL Q5M PRN #20 tab 02/10/25 [Rx] Sacubitril/Valsartan [Entresto 24 mg-26 mg Tablet] 0.5 each PO BID #60 tab 02/10/25 [Rx] Spironolactone [Aldactone] 12.5 mg PO DAILY #30 tab 02/10/25 [Rx] Ticagrelor [Brilinta] 90 mg PO BID #60 tab 02/10/25 [Rx] Follow up Appointment(s)/Referral(s): Wes Sampson III, MD [Primary Care Provider] - 1-2 days Bart Cruz MD [STAFF PHYSICIAN] - 1 Week Patient Instructions/Handouts: After Radial Heart Catheterization (GEN) Activity/Diet/Wound Care/Special Instructions: activity limited until follow up follow up with cardiology in one week follow up with pcp on discharge continue life vest Support your puncture site by applying firm, steady pressure whenever you cough, laugh, sneeze or bear down to have a bowel movement (2-day restriction). Watch for any excessive bruising, active bleeding, a firm knot forming under your skin, extreme tenderness and signs of infection (redness, swelling, fever). Shower daily, do not soak puncture in a tub bath, jacuzzi, pool, stafford etc. for 1 week. This is to prevent risk of infection. Drink plenty of fluids the day of and day after your procedure to flush contrast dye out of your kidneys. Take all medications as directed. Never stop any new medication without your physicians OK. No driving for 2 days after procedure. 10- pound weight lifting restriction for 1 week. Low sodium/low fat diet. Activity limited until follow up appointment with your live truck operator. In case of any problems, please call [facility], Lillie Hong @ [phone]. Just some important facts for you to know after your stent placement Aspirin as anti-platelet therapy - Aspirin lessens the chance of heart attack and stroke. It helps prevent blood clots from forming, allowing the blood to flow more easily. Each day, you will take one 81 mg (non-enteric coated) tablet daily. Do not stop unless instructed by your doctor. Anti-platelet Therapy. -In addition to aspirin, you will take one additional anti-platelet medication daily. This will help prevent a clot from forming in your stent: Ticagreler (Brillinta) -You will need to take your anti-platelet medicine every day for 12 months -Please consult your heart doctor before you stop this medicine. -They may want you to continue for a longer period of time. Statins -A statin medication lowers cholesterol levels in the blood. This helps slow the progression of heart disease. - Please take your statin medication as prescribed by your doctor. -You may be taking one of the following statins: Rosuvastatin Beta blockers -Your Medication: Metoprolol Is a medication that protects your heart from stress and can prevent future heart attacks. It can slow your heart rate. It can take weeks for your body to get used to a beta koby. The dose may need to be changed a few times as your body adjusts Do not stop taking these medicines without talking to your doctor. -Take all other medicines as directed by your doctor. Do not take any extra aspirin or ibuprofen. They can increase your risk of bleeding. Many [id number] drugs contain aspirin. If you are unsure about what the drug contains, check with your pharmacist before taking it. -For mild discomfort, you may take plain Tylenol (acetaminophen). Follow dose directions, but do not take more than 4,000 mg of acetaminophen in 24 hours. Contact your doctor right away or go to the nearest hospital Emergency Room if you have: -Severe angina or chest pain. (This may be a sign of a problem with your stent.) -Excessive bruising, blood in urine/stool or black tarry stools. Heart Healthy Diet: Include more plants in your diet. Eat lots of fresh vegetables and fresh fruits. Eat good fats: plant based oils, avocado, nuts, beans, legumes. Eat more seafood. Limit Meat. Switch to whole grains. -Avoid fried foods and animal fats and processed meats, avoid a lot of sodium. weigh yourself daily- a weight of more than 3 lbs in a day or 5 lbs in a week is cause for concern. Call your live truck operator. Discharge Disposition: HOME SELF-CARE
== END 2025-02-10 15:16 | disposition home or self-care (01) | DRG 322 ==
LOC: EC 21:22 → 3SCARD 22:45
PROVIDERS: ADMIT Hospitalist; ATTEND Hospitalist
PROC: 027034Z Dilation of Coronary Artery, One Artery with Drug-eluting Intraluminal Device, Percutaneous Approach (ICD-10-PCS; principal; 2025-02-08 12:00)
PROC: B2111ZZ Fluoroscopy of Multiple Coronary Arteries using Low Osmolar Contrast (ICD-10-PCS; 2025-02-08 12:00)
PROC: B240ZZ3 Ultrasonography of Single Coronary Artery, Intravascular (ICD-10-PCS; 2025-02-08 12:00)
PROC: 4A033BC Measurement of Arterial Pressure, Coronary, Percutaneous Approach (ICD-10-PCS; 2025-02-08 12:00)
DX: I21.4 Non-ST elevation (NSTEMI) myocardial infarction (principal); I51.3 Intracardiac thrombosis, not elsewhere classified; I10 Essential (primary) hypertension; I34.0 Nonrheumatic mitral (valve) insufficiency; E78.5 Hyperlipidemia, unspecified; I25.10 Atherosclerotic heart disease of native coronary artery without angina pectoris; I25.5 Ischemic cardiomyopathy; Z85.819 Personal history of malignant neoplasm of unspecified site of lip, oral cavity, and pharynx; Z87.891 Personal history of nicotine dependence; I25.2 Old myocardial infarction; Z91.018 Allergy to other foods; I37.1 Nonrheumatic pulmonary valve insufficiency; Z79.01 Long term (current) use of anticoagulants; Z79.02 Long term (current) use of antithrombotics/antiplatelets; Z79.82 Long term (current) use of aspirin
CPT/HCPCS: 36415; 71046; 80048; 80053; 80061; 83036; 83735; 83880; 84484; 85025; 85049; 85610; 85730; 92978; 93005; 93306; 93458; 93799; 96365; 96366; 99291

== ENCOUNTER → 2025-04-04 | Outpatient (CLI) | payer MEDICARE, BC ==
[2025-04-04 15:26] LABS: Anion Gap 9.90 mmol/L (4.00-12.00); BUN/Creat Ratio 15.54 Ratio (12.00-20.00); Blood Urea Nitrogen 20.2 mg/dL (9.0-27.0); Carbon Dioxide 25.1 mmol/L (21.6-31.8); Chloride 105 mmol/L (96-109); Cholesterol 206.00 mg/dL (0.00-200.00); Glucose 82 mg/dL (70-110); HDL Cholesterol 47.70 mg/dL (40.00-60.00); LDL Cholesterol,Calculated 136.9 mg/dL (0.0-131.0); Potassium 4.2 mmol/L (3.5-5.5); Sodium 140 mmol/L (135-145); Triglycerides 107.00 mg/dL (0.00-149.00); VLDL Calculation 21.40 mg/dL (5.00-40.00)
[2025-04-04 15:27] LABS: ALT 12 U/L (10-49); AST 20 U/L (14-35); Albumin 4.0 g/dL (3.8-4.9); Albumin/Globulin Ratio 1.82 Ratio (1.60-3.17); Alkaline Phosphatase 70 U/L (41-126); Calcium 9.2 mg/dL (8.7-10.3); Globulin 2.2 g/dL (1.6-3.3); Total Protein 6.2 g/dL (6.2-8.2)
== END | disposition home or self-care (01) ==
LOC: LABWHC1 08:23
PROVIDERS: ATTEND Family Medicine
DX: I10 Essential (primary) hypertension (principal); I25.10 Atherosclerotic heart disease of native coronary artery without angina pectoris; I25.5 Ischemic cardiomyopathy; E78.2 Mixed hyperlipidemia
CPT/HCPCS: 36415; 80053; 80061